=== PATIENT | female | born 1955 | race Caucasian/White ===

== ENCOUNTER 2018-09-20 14:54 | Emergency (ER) | payer OTHER ==
[2018-09-20] MEDS ORDERED: PANTOPRAZOLE 40 MG INJ ONE (16:01)
[2018-09-20 16:07] LABS: Absolute Monocytes 0.5 K/uL (0.1-1.3); Absolute Neutrophil 8.4 K/uL (1.8-8.0); Basophils % 0.6 % (0-1.3); Eosinophils % 2.8 % (0-4.4); Lymphocytes % 17.8 % (15.3-44.8); MCH 28.1 pg (27.0-35.0); MCV 86.3 fL (80-100); MPV 8.9 fL (7.6-11.3); Monocytes % 4.1 % (3.3-12.3); RBC Red Blood Cell Count 4.75 M/uL (3.86-4.86)
[2018-09-20 16:19] LABS: Urine Blood NEGATIVE (NEG); Urine Glucose NEGATIVE (NEG); Urine Protein NEGATIVE (NEG); Urine Specific Gravity <1.005 (1.005-1.030); Urine pH 5.5 (5.0-7.0)
[2018-09-20 16:25] LABS: ALT/SGPT 40 U/L (12-78); AST/SGOT 35 U/L (15-37); Albumin 3.8 g/dL (3.4-5.0); Alkaline Phosphatase 142 U/L (45-117); BUN Blood Urea Nitrogen 16 mg/dL (7-18); Bicarbonate 27 mmol/L (21-32); Bilirubin Direct < 0.1 mg/dL (0-0.2); Bilirubin Total 0.2 mg/dL (0.2-1.0); Glucose Level 103 mg/dL (74-106); Lipase 157 U/L (73-393); Potassium 3.7 mmol/L (3.5-5.1); Protein, Total 7.4 g/dL (6.4-8.2); Sodium Level 140 mmol/L (136-145)
--- NOTE | 2018-09-20 16:57 | RAD REPORT ---
EXAM DESCRIPTION: CT - Abdomen Pelvis W Contrast - 09/20/2018 4:48 pm CLINICAL HISTORY: Abdominal pain with nausea. COMPARISON: January 2018 TECHNIQUE: Computed axial tomography of the abdomen pelvis was obtained. 100 cc Isovue-300 was admin istered intravenously. Oral contrast was not requested which limits evaluation of bowel. All CT scans are performed using dose optimization technique as appropriate and may include automated exposure control or mA/KV adjustment according to patient size. FINDINGS: Postsurgical changes of a gastric bypass. The wall of the gastric fundus appears thickened . The gallbladder has been removed The liver, spleen, pancreas, adrenal and kidneys appear unremarkable. There is no evidence of diverticulitis. IMPRESSION: Apparent thickening of the wall of the gastric fundus may indicate inflammation
--- NOTE | 2018-09-20 17:16 | ER ---
Nurse's Notes [facility] Name: Brit Vale Age: 63 yrs Sex: Female : 1955 Arrival Date: 09/20/2018 Time: 14:58 Bed 25 Private MD: Nuha Avila K Diagnosis: Gastritis, unspecified Presentation: 09/20 15:33 Presenting complaint: Patient states: Upper abdominal pain that radiates up to her aj1 chest for the past 2 days. Reports belching, nausea. Denies vomiting, diarrhea. Denies fever. Transition of care: patient was not received from another setting of care. Onset of symptoms was September 18, 2018. Risk Assessment: Do you want to hurt yourself or someone else? Patient reports no desire to harm self or others. Initial Sepsis Screen: Does the patient meet any 2 criteria? No. Patient's initial sepsis screen is negative. Does the patient have a suspected source of infection? Yes: Acute abdominal pain. Care prior to arrival: None. 15:33 Method Of Arrival: Ambulatory aj 15:33 Acuity: BHAKTI 3 aj1 Triage Assessment: 15:35 General: Appears in no apparent distress. comfortable, Behavior is calm, cooperative, aj1 appropriate for age. Pain: Complains of pain in right upper quadrant and left upper quadrant Pain currently is 6 out of 10 on a pain scale. Neuro: Level of Consciousness is awake, alert, obeys commands. Cardiovascular: Patient's skin is warm and dry. Respiratory: Airway is patent Respiratory effort is even, unlabored, Respiratory pattern is regular, symmetrical. GI: Reports upper abdominal pain, gaseousness, nausea. Historical: - Allergies: 15:35 FLU VACCINE; aj1 - Home Meds: 15:35 None [Active]; aj1 - PMHx: 15:35 Sinus Infections; aj1 - PSHx: 15:35 Gastric Bypass; Cholecystectomy; neck surgery; arm surgery; aj1 - Immunization history:: Flu vaccine is not up to date. - Social history:: Smoking status: Patient/guardian denies using tobacco. - Ebola Screening: : Patient denies travel to an Ebola-affected area in the 21 days before illness onset. Screenin:39 Abuse screen: Denies threats or abuse. Nutritional screening: No deficits noted. tw2 Tuberculosis screening: No symptoms or risk factors identified. Fall Risk None identified. Assessment: 15:54 General: Appears in no apparent distress. well groomed, Behavior is calm, cooperative, tw2 appropriate for age. Pain: Complains of pain in epigastric area and left upper quadrant and right upper quadrant. Neuro: Level of Consciousness is awake, alert, obeys commands, Oriented to person, place, time, situation. Cardiovascular: Denies chest pain, shortness of breath, Heart tones S1 S2 Patient's skin is warm and dry. Respiratory: Airway is patent Respiratory effort is even, unlabored, Respiratory pattern is regular, symmetrical, Breath sounds are clear bilaterally. GI: Bowel sounds present X 4 quads. Abd is soft X 4 quads Reports upper abdominal pain, indigestion. : No signs and/or symptoms were reported regarding the genitourinary system. EENT: No signs and/or symptoms were reported regarding the EENT system. Derm: No signs and/or symptoms reported regarding the dermatologic system. Musculoskeletal: Range of motion: intact in all extremities. 16:26 Reassessment: Patient appears in no apparent distress at this time. No changes from tw2 previously documented assessment. Patient and/or family updated on plan of care and expected duration. Pain level reassessed. Patient is alert, oriented x 3, equal unlabored respirations, skin warm/dry/pink. 17:30 Reassessment: Patient appears in no apparent distress at this time. Patient and/or kr2 family updated on plan of care and expected duration. Pain level reassessed. Patient is alert, oriented x 3, equal unlabored respirations, skin warm/dry/pink. Vital Signs: 15:35 BP 162 / 75; Pulse 69; Resp 18; Temp 97.7; Pulse Ox 99% on R/A; Weight 83.01 kg (R); aj1 Height 5 ft. 8 in. (172.72 cm); Pain 6/10; 16:26 BP 153 / 68; Pulse 54; Resp 17; Pulse Ox 100% on R/A; tw2 17:30 BP 154 / 64; Pulse 60; Resp 17; Pulse Ox 99% on R/A; kr2 15:35 Body Mass Index 27.82 (83.01 kg, 172.72 cm) aj1 ED Course: 14:58 Patient arrived in ED. sb2 14:58 Nuha Avila MD is Private Physician. sb2 15:34 Triage completed. aj1 15:35 Arm band placed on Patient placed in an exam room. aj1 15:38 Taina Martinez, RN is Primary Nurse. tw2 15:39 Bed in low position. Call light in reach. Adult w/ patient. Pulse ox on. NIBP on. tw2 15:40 Janey Watt FNP-C is [facility]. kb 15:40 Damaso Gunderson MD is Attending Physician. kb 15:40 Warm blanket given. Pillow given. jp3 15:50 Initial lab(s) drawn, by ms, sent to lab. Urine collected: clean catch specimen, clear, jp3 Amount Voided: 80mL. Inserted saline lock: 22 gauge in left antecubital area, using aseptic technique. Blood collected. Patient maintains SpO2 saturation greater than 95% on room air. 16:44 EKG done, by agricultural engineering technologist. reviewed by Janey BUSTILLO. dt2 16:[address] via wheelchair. mw3 16:46 CT completed. Patient tolerated procedure well. Patient moved back from CT. mw3 16:48 CT Abd/Pelvis - W/Contrast In Process Unspecified. EDMS 16:58 Report given to SILVIA Sanchez. tw2 17:28 IV discontinued, intact, bleeding controlled, No redness/swelling at site. Pressure jp3 dressing applied. 17:31 No provider procedures requiring assistance completed. kr2 17:32 IV dc'd at 1728 by HONG Ricks. kr2 Administered Medications: 16:10 Drug: ProTONIX 40 mg Route: IVP; Site: left antecubital; tw2 17:32 Follow up: Response: No adverse reaction kr2 Outcome: 17:15 Discharge ordered by . kb 17:31 Discharged to home ambulatory, with family. kr2 17:31 Condition: good 17:31 Discharge instructions given to patient, family, Instructed on discharge instructions, follow up and referral plans. medication usage, Demonstrated understanding of instructions, follow-up care, medications, Prescriptions given X 1. 17:33 Patient left the ED. kr2 Signatures: Dispatcher [employer] EDMS Janey Watt, Sarah Tobias RN RN aj1 Taina Martinez, RN RN tw2 Laura Funes RN RN kr2 Baylee Snow2 Rebecca Hernandes dt2 Leatha Chicas mw3 Seun Harper jp3
--- NOTE | 2018-09-20 17:16 | EDPHYS ---
Physician Documentation [facility] Name: Brit Vale Age: 63 yrs Sex: Female : 1955 Arrival Date: 09/20/2018 Time: 14:58 Bed 25 Private MD: Nuha Avila K ED Physician Damaso Gunderson HPI: 09/20 17:01 This 63 yrs old Female presents to ER via Ambulatory with complaints of kb Abdominal Pain. 17:01 The patient presents with abdominal pain in the upper abdomen. Onset: The kb symptoms/episode began/occurred 2 day(s) ago. The symptoms do not radiate. Associated signs and symptoms: Pertinent positives: nausea, belching. The symptoms are described as constant. Modifying factors: The symptoms are alleviated by nothing, the symptoms are aggravated by nothing. Severity of pain: At its worst the pain was moderate in the emergency department the pain is unchanged. The patient has not experienced similar symptoms in the past. The patient has not recently seen a physician. Historical: - Allergies: 15:35 FLU VACCINE; aj1 - Home Meds: 15:35 None [Active]; aj1 - PMHx: 15:35 Sinus Infections; aj1 - PSHx: 15:35 Gastric Bypass; Cholecystectomy; neck surgery; arm surgery; aj1 - Immunization history:: Flu vaccine is not up to date. - Social history:: Smoking status: Patient/guardian denies using tobacco. - Ebola Screening: : Patient denies travel to an Ebola-affected area in the 21 days before illness onset. ROS: 16:59 Constitutional: Negative for fever, chills, and weight loss, Cardiovascular: Negative kb for chest pain, palpitations, and edema, Respiratory: Negative for shortness of breath, cough, wheezing, and pleuritic chest pain, Back: Negative for injury and pain, MS/Extremity: Negative for injury and deformity, Skin: Negative for injury, rash, and discoloration, Neuro: Negative for headache, weakness, numbness, tingling, and seizure. 16:59 Abdomen/GI: Positive for abdominal pain, nausea, belching. kb Exam: 16:59 Constitutional: This is a well developed, well nourished patient who is awake, alert, kb and in no acute distress. Head/Face: Normocephalic, atraumatic. Chest/axilla: Normal chest wall appearance and motion. Nontender with no deformity. No lesions are appreciated. Cardiovascular: Regular rate and rhythm with a normal S1 and S2. No gallops, murmurs, or rubs. Normal PMI, no JVD. No pulse deficits. Respiratory: Lungs have equal breath sounds bilaterally, clear to auscultation and percussion. No rales, rhonchi or wheezes noted. No increased work of breathing, no retractions or nasal flaring. Back: No spinal tenderness. No costovertebral tenderness. Full range of motion. Skin: Warm, dry with normal turgor. Normal color with no rashes, no lesions, and no evidence of cellulitis. MS/ Extremity: Pulses equal, no cyanosis. Neurovascular intact. Full, normal range of motion. Neuro: Awake and alert, GCS 15, oriented to person, place, time, and situation. Cranial nerves II-XII grossly intact. Motor strength 5/5 in all extremities. Sensory grossly intact. Cerebellar exam normal. Normal gait. 16:59 Abdomen/GI: Inspection: abdomen appears normal, Bowel sounds: normal, in all quadrants, Palpation: soft, in all quadrants, moderate abdominal tenderness, in the right upper quadrant and left upper quadrant. Vital Signs: 15:35 BP 162 / 75; Pulse 69; Resp 18; Temp 97.7; Pulse Ox 99% on R/A; Weight 83.01 kg (R); aj1 Height 5 ft. 8 in. (172.72 cm); Pain 6/10; 16:26 BP 153 / 68; Pulse 54; Resp 17; Pulse Ox 100% on R/A; tw2 17:30 BP 154 / 64; Pulse 60; Resp 17; Pulse Ox 99% on R/A; kr2 15:35 Body Mass Index 27.82 (83.01 kg, 172.72 cm) aj1 MDM: 15:40 Patient medically screened. kb 16:59 Data reviewed: vital signs, nurses notes. Data interpreted: Pulse oximetry: on room air kb is 100 %. Interpretation: normal. Counseling: I had a detailed discussion with the patient and/or guardian regarding: the historical points, exam findings, and any diagnostic results supporting the discharge/admit diagnosis, lab results, radiology results, the need for outpatient follow up, a family practitioner, to return to the emergency department if symptoms worsen or persist or if there are any questions or concerns that arise at home. 09/20 15:40 Order name: Basic Metabolic Panel; Complete Time: 16:28 kb 09/20 15:40 Order name: CBC with Diff; Complete Time: 16:15 kb 09/20 15:40 Order name: Hepatic Function; Complete Time: 16:28 kb 09/20 15:40 Order name: Lipase; Complete Time: 16:28 kb 09/20 16:07 Order name: Urine Dipstick--Ancillary (enter results); Complete Time: 16:20 bd 09/20 16:30 Order name: CT Abd/Pelvis - W/Contrast; Complete Time: 16:58 kb 09/20 15:40 Order name: IV Saline Lock; Complete Time: 16:14 kb 09/20 15:40 Order name: Labs collected and sent; Complete Time: 16:14 kb 09/20 16:11 Order name: EKG; Complete Time: 16:12 kb 09/20 16:11 Order name: EKG - Nurse/Tech; Complete Time: 16:36 kb Administered Medications: 16:10 Drug: ProTONIX 40 mg Route: IVP; Site: left antecubital; tw2 17:32 Follow up: Response: No adverse reaction kr2 Disposition: 18:44 Co-signature as Attending Physician, Damaso Gunderson MD. rn Disposition: 09/20/18 17:15 Discharged to Home. Impression: Gastritis, unspecified. - Condition is Stable. - Discharge Instructions: Gastritis, Adult, [id number]. - Prescriptions for Protonix 40 mg Oral Tablet - take 1 tablet by ORAL route once daily; 30 tablet. - Medication Reconciliation Form, Thank You Letter, Antibiotic Education, Prescription Opioid Use form. - Follow up: Emergency Department; When: As needed; Reason: Worsening of condition. Follow up: Private Physician; When: 2 - 3 days; Reason: Recheck today's complaints, Continuance of care, Re-evaluation by your physician. Signatures: Dispatcher [employer] Janey Torres, CLYDE-C BLEACH TESTER-CkSarah Peguero, RN RN aj1 Daamso Gunderson MD MD rn Wise, Tara, RN RN tw2 Laura Funes RN RN kr2 Corrections: (The following items were deleted from the chart) 17:33 17:15 09/20/2018 17:15 Discharged to Home. Impression: Gastritis, unspecified. kr2 Condition is Stable. Forms are Medication Reconciliation Form, Thank You Letter, Antibiotic Education, Prescription Opioid Use. Follow up: Emergency Department; When: As needed; Reason: Worsening of condition. Follow up: Private Physician; When: 2 - 3 days; Reason: Recheck today's complaints, Continuance of care, Re-evaluation by your physician. kb
--- NOTE | 2018-09-20 22:16 | EKG ---
Test Date: 2018-09-20 Test Time: 16:29:12 Automotive Machinist: OSMANI MEASUREMENT RESULTS: Intervals: Rate: 53 VT: 156 QRSD: 74 QT: 442 QTc: 414 [place]: P: 8 VT: 156 QRS: 18 T: 46 INTERPRETIVE STATEMENTS: Sinus bradycardia Otherwise normal ECG Compared to ECG 09/13/2018 13:58:58 Sinus rhythm no longer present Electronically Signed On 09-20-18 22:15:49 DIGITAL DATA ANALYST by Gerson Marinelli
== END 2018-09-20 17:33 | disposition home or self-care (01) ==
LOC: ER 14:54
DX: K29.70 Gastritis, unspecified, without bleeding (principal); Z88.7 Allergy status to serum and vaccine
CPT/HCPCS: 36415; 74177; 80048; 80076; 81003; 83690; 85025; 93005; 96374; 99285; C9113; Q9967

== ENCOUNTER 2018-09-22 07:59 | Day surgery (SDC) | payer OTHER ==
--- NOTE | 2018-09-13 15:14 | EKG ---
Test Date: 2018-09-13 Test Time: 13:58:58 Angle Bender: CORIN MEASUREMENT RESULTS: Intervals: Rate: 62 PA: 148 QRSD: 72 QT: 390 QTc: 395 [place]: P: 5 PA: 148 QRS: 22 T: 50 INTERPRETIVE STATEMENTS: Normal sinus rhythm Normal ECG Compared to ECG 02/26/2013 10:48:01 Sinus bradycardia no longer present Sinus arrhythmia no longer present Electronically Signed On 09-13-18 15:14:08 CDT by Gerson Marinelli
[2018-09-22] MEDS: OXYMETAZOLINE HCL 0.05% 15ML NAS ONE ×3 (08:07→08:30)
[2018-09-22] MEDS ORDERED: Ringers Lactate 1,000 ML IV ONE ×2 (08:13→11:15)
[2018-09-22] MEDS ORDERED: NA CHLORIDE 0.9% 500 ML ONE (08:27)
[2018-09-22] MEDS ORDERED: OXYMETAZOLINE HCL 0.05% 15ML NAS ONE (08:27)
[2018-09-22] MEDS ORDERED: ROCURONIUM 50 MG/5 ML VIAL IV ONE ×2 (08:45→10:09)
[2018-09-22] MEDS ORDERED: PROPOFOL 200 MG/20 ML VIAL IV ONE (08:45)
[2018-09-22] MEDS ORDERED: LIDOCAINE 2% MPF 5 ML VIAL ONE (08:46)
[2018-09-22] MEDS ORDERED: GLYCOPYRROLATE 0.2 MG/ML SYR ONE ×3 (08:46→09:58)
[2018-09-22] MEDS ORDERED: FENTANYL CITR 250 MCG/5 ML ONE (08:47)
[2018-09-22] MEDS ORDERED: MIDAZOLAM HCL 2 MG/2 ML INJ ONE (08:47)
[2018-09-22] MEDS ORDERED: ONDANSETRON HCL 40 MG/20 ML VIAL ONE (08:48)
[2018-09-22] MEDS ORDERED: NEOSTIGMINE 1 MG/ML -5 ML SYRINGE ONE (08:48)
[2018-09-22] MEDS: LIDOCAINE 1% W/EPI 1:100,000 MDV 50 ML VIAL ONE ×2 (09:09→09:52)
[2018-09-22] MEDS ORDERED: DEXAMETHASONE 10 MG/ML VIAL ONE (10:38)
[2018-09-22] MEDS: MEPERIDINE HCL 50 MG/ML AMP ONE ×3 (11:40→11:45)
--- NOTE | 2018-09-23 00:48 | OP ---
Date of Procedure: 09/22/2018 Surgeon: Apurva Kim MD Preoperative Diagnoses: Nasal deviation and nasal obstruction. Septal deviation, chronic maxillary ethmoid and frontal sinusitis, oroantral fistula. Indication For Procedure: Ms. Vale presented after a dental extraction with an oroantral fistula w ith drainage of chronic sinusitis. She was treated with multiple courses of antibiotics without sign ificant improvement and finally opted for operative intervention. The risks, benefits, and alternati ves to the procedure were discussed with the patient, who agreed to proceed. Description Of Procedure: The patient was brought to the operating room. She was placed under gener al anesthesia. The head of bed was turned 90 degrees. The nasal hairs were trimmed and the septum w as injected with 1% lidocaine with epinephrine and the nasal cavity was packed with Afrin-soaked pled gets. After time for effect, a nasal speculum was used to visualize the nasal cavity. The septum wa s deviated significantly to the left with significant narrowing of the nasal cavity. A right hemitra nsfixion incision was made through the mucosa and bilateral submucosal flaps were elevated using a Co ttle elevator. The Grimes elevator was then used to incise into the cartilage, leaving an adequate c audocranial strut. The bony deviation was removed using a Valerio rongeur. A prominent septal spur w as carefully removed. This allowed for significant improvement in the positioning of the nasal septu m. No closure of the septum was made at this time, and attention was turned to the endoscopic portio n of the procedure. The [employer] headpiece was attached to the patient's forehead and registration w ith the preoperative CT scan was performed using a laser pointer with excellent accuracy and point-to -point matching of the tip of the nose, dorsum of bilateral medial and lateral canthi. The 0-degree endoscope was used to perform a nasal endoscopy on the left side. The middle turbinate was medialize d with a [place] and the middle meatus was packed with an Afrin-soaked pledget. After several minutes, this was removed and a maxillary antrostomy was performed by removal of the uncinate process using a backbiter and 90-degree Blakesley. During manipulation of the uncinate process, the sinus was noted to have significant purulent material draining from it. A maxillary sinus antrostomy was enlarged u sing the microdebrider as well as the 90-degree Blakesley and was best visualized using a 30-degree e ndoscope. After adequate dissection, photodocumentation of the maxillary sinus was taken and it show ed severe inflammation of the lining of the sinus as well as significant purulent debris. The sinus was forcefully irrigated with multiple aliquots of sterile saline until all visible purulence was rem noam. The antrostomy area was packed with Afrin-soaked pledgets to aid in hemostasis and attention w as then turned to the ethmoid. The 30-degree endoscope along with the navigation suction tip was use d during. Dissection of the ethmoid, the bulla was carefully dissected using a curette and bony part itions within the anterior ethmoid cavity were removed using a straight 45 and 90-degree Blakesley. There was moderate purulence within the ethmoid cavity as well as a severely inflamed ethmoid mucosal inflammation and edema. Once the anterior ethmoids were opened inferiorly, the 30-degree endoscope was used to provide better visualization along the skull base and additional partitions were removed. The 70-degree endoscope was then used for visualization of the frontal recess. The frontal recess was further opened using a bcqdb-eo-bnqf and yrpu-wy-cgwn Giraffe with removal of partition and remov al of severely inflamed mucosa. The frontal sinusotomy was then cannulated using a curved navigation suction and the frontal sinus was forcefully irrigated with 2 aliquots of sterile saline. Afrin-soa ked pledgets were packed into the sinus cavity for several minutes to aid in hemostasis. After remov al, the degree of inflammation warranted placement of steroid-eluting stents. The PROPEL Mini was pl aced within the frontal recess under endoscopic guidance. The standard PROPEL was then placed within the ethmoid sinuses with good positioning. The nasal cavity and nasopharynx were suctioned bilatera lly and attention was returned to the septum. Using a headlight and short nasal speculum, the hemitr ansfixion incision was closed in a running fashion using 5-0 plain suture and the patient was returne d to care of anesthesia for awakening and extubation in the operating room, which proceeded without d ifficulty. Procedures: 1.Septoplasty. 2.Nasal endoscopy with frontal sinusotomy. 3.Nasal endoscopy with anterior left ethmoidectomy. 4.Nasal endoscopy with left maxillary antrostomy. JEFF/CYNDEE Voice ID: [id number] Report ID: [id number]
== END 2018-09-22 13:09 | disposition home or self-care (01) ==
LOC: OR 07:59
PROVIDERS: ATTEND Otolaryngology
PROC: 09BV8ZZ Excision of Left Ethmoid Sinus, Via Natural or Artificial Opening Endoscopic (ICD-10-PCS; 2018-09-22)
PROC: 099T8ZZ Drainage of Left Frontal Sinus, Via Natural or Artificial Opening Endoscopic (ICD-10-PCS; 2018-09-22)
PROC: 099R8ZZ Drainage of Left Maxillary Sinus, Via Natural or Artificial Opening Endoscopic (ICD-10-PCS; 2018-09-22)
PROC: 8E09XBG Computer Assisted Procedure of Head and Neck Region, With Computerized Tomography (ICD-10-PCS; 2018-09-22)
PROC: 09SM4ZZ Reposition Nasal Septum, Percutaneous Endoscopic Approach (ICD-10-PCS; 2018-09-22)
PROC: 8E09XBZ Computer Assisted Procedure of Head and Neck Region (ICD-10-PCS; principal; 2018-09-22 09:15)
DX: J32.2 Chronic ethmoidal sinusitis (principal); J32.0 Chronic maxillary sinusitis; J32.1 Chronic frontal sinusitis; J34.2 Deviated nasal septum; K21.9 Gastro-esophageal reflux disease without esophagitis; Z98.84 Bariatric surgery status; Z90.49 Acquired absence of other specified parts of digestive tract; Z83.3 Family history of diabetes mellitus; Z82.49 Family history of ischemic heart disease and other diseases of the circulatory system
CPT/HCPCS: 88304; 88305; 88311; 93005; J1100; J2175; J2250; J2405; J2704; J2710; J3010

== ENCOUNTER 2021-09-18 06:25 | Day surgery (SDC) | payer OTHER ==
[2021-09-18] MEDS ORDERED: Ringers Lactate 1,000 ML IV ONE (06:50)
[2021-09-18] MEDS ORDERED: OXYMETAZOLINE HCL 0.05% 15ML NAS ONE (06:51)
[2021-09-18] MEDS ORDERED: LIDOCAINE 1% W/EPI 1:100,000 MDV 20 ML VIAL ONE (06:51)
[2021-09-18] MEDS ORDERED: EPINEPHRINE/PF 1 MG/ML AMP ONE (06:51)
[2021-09-18] MEDS ORDERED: NA CHLORIDE 0.9% 0 ML ONE (06:51)
[2021-09-18] MEDS ORDERED: MIDAZOLAM HCL 2 MG/2 ML INJ ONE (07:07)
[2021-09-18] MEDS ORDERED: propofoL 200 MG/20 ML VIAL IV ONE (07:07)
[2021-09-18] MEDS ORDERED: GLYCOPYRROLATE 0.2 MG/ML SYR ONE (07:08)
[2021-09-18] MEDS ORDERED: LIDOCAINE 2% MPF 5 ML VIAL ONE (07:09)
[2021-09-18] MEDS ORDERED: ROCURONIUM 50 MG/5 ML VIAL IV ONE (07:10)
[2021-09-18] MEDS ORDERED: ONDANSETRON 4 MG/2 ML VIAL ONE (07:10)
[2021-09-18] MEDS ORDERED: FENTANYL CITR 100 MCG/2 ML ONE (07:11)
[2021-09-18] MEDS ORDERED: dexAMETHasone 10 MG/ML VIAL ONE (07:11)
[2021-09-18] MEDS: OXYMETAZOLINE HCL 0.05% 15ML NAS ONE ×2 (07:18→07:24)
--- NOTE | 2021-09-18 08:03 | P.BOP ---
Preoperative diagnosis: CRS, left maxillary, PND, mucus recirculation Postoperative diagnosis: same Primary procedure: L revision maxillary antrostomy via nasal endoscopy Dockworker: NONE,NONE Estimated blood loss: <5ml Specimen: left maxillary scar band and mucus Findings: left maxillary scar band and mucus recirculation Anesthesia: General Complications: None Implants: none Fluids & blood products: 500ml crystalloid Transferred to: Recovery Room Condition: Good
[2021-09-18] MEDS ORDERED: ACETAMINOPHEN 325 MG TABLET ONE (09:16)
[2021-09-18] MEDS ORDERED: EPHEDRINE SULF 50 MG/ML VIAL ONE (09:17)
[2021-09-18 09:51] VITALS: BP 116/57; TEMP 97.6; O2SAT 97
--- NOTE | 2021-09-18 12:32 | OP ---
Date of Procedure: 09/18/2021 Surgeon: Apurva Kim MD Preoperative Diagnosis: Chronic maxillary sinus mucus recirculation and postnasal drainage. Postoperative Diagnosis: Chronic maxillary sinus mucus recirculation and postnasal drainage. Procedure: Revision left maxillary antrostomy. Indication For Procedure: Ms. Vale previously underwent left-sided sinus surgery for severe odonto genic infection, at which time, she had severe mucosal inflammation. She did very well overall after surgery, but over time developed complaints of postnasal drainage. She was treated conservatively w ith saline irrigations with minimal improvement. On followup endoscopic exam, she was noted to have a scar band across the maxillary antrostomy creating mucus recirculation and resulting in her symptom s. The risks, benefits, and alternatives were discussed with the patient, who agreed to proceed. Description Of Procedure: The patient was brought to the operating room. She was placed under gener al anesthesia via oral endotracheal tube. The head of bed was turned 90 degrees. The nasal hairs we re trimmed with scissors and the patient was traced in a standard fashion for endoscopic sinus surger y. A 70-degree rigid endoscope was used to perform a left nasal endoscopy, demonstrating a scar band and thick mucus within that region. A 90-degree Blakesley and 45-degree Blakesley were used to jennie ve the scar band and mucus. The area was packed with Afrin-soaked pledgets to provide hemostasis and after removal of all packing, the area was reexamined and appeared to be open with no additional red undant tissue. No packing and no splints were deemed necessary at this time. The procedure was conc luded. The patient was returned to care of anesthesia for awakening and extubation in the operating room, which proceeded without difficulty. Complications: None. Specimens: Sinonasal trimmings and mucus. Disposition: The patient will be discharged home later today in the care of her family and follow up with Dr. Kim in approximately 10 days for re-evaluation. The patient is instructed to use salin e irrigations twice daily until her followup and to follow a routine nasal precautions. JEFF/CYNDEE Voice ID: [id number] Report ID: [id number]
== END 2021-09-18 09:40 | disposition home or self-care (01) ==
LOC: OR 06:25
PROVIDERS: ATTEND Otolaryngology
PROC: 099R8ZZ Drainage of Left Maxillary Sinus, Via Natural or Artificial Opening Endoscopic (ICD-10-PCS; principal; 2021-09-18 07:30)
DX: J32.0 Chronic maxillary sinusitis (principal); J32.1 Chronic frontal sinusitis; J32.2 Chronic ethmoidal sinusitis; R09.82 Postnasal drip; Z20.822 Contact with and (suspected) exposure to COVID-19
CPT/HCPCS: 93005; 88304; 31256; U0002; J2704; J2250; J3010; J1100; J7120; J2405; 88305; J0171; J7040

== ENCOUNTER 2024-10-15 10:05 | Observation (INO) | payer OTHER ==
--- OUTSIDE RECORDS SUMMARY | 2024-10-15 10:10 | XMS REPORT | Continuity of Care Document ---
Author Name Unknown Address [address] [facility] [address] [place] [address] [facility]entia heal[facility]ct Address [address] [facility] 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 Role Phone Nuha Avila Primary Care Physician + [phone] PEÑA LAM Attending Clinician Unavailab rosanna DALY_LUISANA_Opal_J Attending Clinician Peña Wooten MD Attending Clinician [phone] Doctor Unassigned, [place] Attending Clinician U LUISA Schroeder Attending Clinician Unavailable Only, [facility] Test Attending Clinician Unavailable Pob, [facility] Main Attending Clinician UnavailPEÑA Pierce Admitting Clinician Unavailab rosanna DALY_LUISANA_Opal_Winsome Admitting Clinician Peña Wooten MD Admitting Clinician [phone] Payers Payer Name Policy Type Policy Number Effective Date Expirati on Date Source [employer] [id number] 2015 00:00:00 [employer] (MEDICARE REPLACEMENT PPO) [id number] 2022 00:00:00 [employer] MANAGED MEDICARE PPO-CHACHA [id number] 2022 00:00:00 MEDICARE PART A \T\ B [id number] 2020 00:00:00 Problems Condition Name Condition Details Condition Category Status Onset Date Resolution Date Last Treatment Date Treating Clinician Comments Source Urgent desire to urinate Urgent Desire to Urinate Problem Active 2024-1 1-12 00:00: 00 [facility] Prolapse of female genital organs Prolapse of Female Genital Organs Problem Active 7 00:00: 00 [facility] Cystocele Cystocele Problem Active 05-30 00:00: 00 [facility] Incomplete emptying of urinary bladder Incomplete Emptying of Urinary Bladder Problem Active 05-30 00:00: 00 [facility] Vitamin B12 deficiency (non anemic) Vitamin B12 Deficiency (Non Anemic) Problem Active 06-08 00:00: 00 [facility] Vitamin D deficiency Vitamin D Deficiency Problem Active 06-08 00:00: 00 [facility] Iron deficiency anemia Iron Deficiency Anemia Problem Active 06-08 00:00: 00 [facility] Screening for malignant neoplasm of colon Screening for Malignant Neoplasm of Colon Problem Active 04-17 00:00: 00 [facility] Inconclusi ve mammograph y finding Inconclusi ve Mammograph y Finding Problem Active 6 00:00: 00 [facility] Abnormal findings on diagnostic imaging of breast Abnormal Findings on Diagnostic Imaging of Breast Problem Active 606 00:00: 00 [facility] 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 Problem Active 408 00:00: 00 [facility] Disorder of bone Disorder of Bone Problem Active 408 00:00: 00 [facility] Midline cystocele Midline Cystocele Problem Active 01-10 00:00: 00 [facility] Uterovagin al prolapse Uterovagin al Prolapse Problem Active 01-10 00:00: 00 [facility] Atrophic vaginitis Atrophic Vaginitis Problem Active 01-10 00:00: 00 [facility] Gynecologi kenna examinatio n abnormal Gynecologi kenna Examinatio n Abnormal Problem Active 01-10 00:00: 00 [facility] Arm pain, right Arm pain, right Disease Active 06-30 00:00: 00 [facility] Gynecologi c examinatio n Gynecologi c Examinatio n Problem Active 01-06 00:00: 00 [facility] Allergies, Adverse Reactions, Alerts Allergy Name Allergy Type Status Severity Reaction(s) Onset Date Inactive Date Treating Clinician Comments Source Codeine Propensi ty to adverse reaction s Active Nausea and/or Vomiting 06-30 00:00: 00 [facility] CODEINE DRUG INGREDI Active N/V 06-30 00:00: 00 [facility] NO KNOWN ALLERGIE S Drug Class Active [facility] Social History Social Habit Start Date Stop Date Quantity Comments Source Exposure to SARS-CoV-2 (event) Not sure [facility] function 2023-09-21 00:00:00 2023-09-21 00:00:00 [facility] Alcohol intake 2023-09-14 00:00:00 2023-09-14 00:00:00 0 /d [facility] Tobacco use and exposure 2020-04-28 00:00:00 2020-04-28 00:00:00 Smokeless tobacco non-user [facility] Sex Ass[birth year] At 1955 00:00:00 1955 00:00:00 [facility] Smoking Status Start Date Stop Date Source Never Smoker [facility] Medications Ordered Medication Name Filled Medication Name Start Date Stop Date Current Medication? Ordering Clinician Indication Dosage Frequency Signature (SIG) Comments Components Source ketorolac 30 mg/mL (1 mL) injection solution Inject 1 mL every 6 hours by intramuscul ar route. ketorolac 30 mg/mL (1 mL) injection solution Inject 1 mL every 6 hours by intramuscul ar route. 2023-11 10:10: 03 No 1mL Q6H ketorolac 30 mg/mL (1 mL) injection solution Inject 1 mL every 6 hours by intramuscu lar route. [facility] Medical lactated ringers IV infusion 1,000 mL 2022-11 17:30: 00 Yes 1000mL at 50 mL/hr, 1,000 mL, IV Infusion, CONTINUOUS , Starting on Tue09/21/23 at 1130, Until Discontinu ed, Routine, PACU [facility] ondansetron (ZOFRAN (PF)) injection 4 mg 2022-11 17:20: 29 Yes 4mg 4 mg, Slow IV Push, PRN, 1 dose, Starting on Tue09/21/23 at 1120, Until Discontinu ed, Routine, Nausea and Vomiting (N/V), PACU [facility] sodium chloride (NS) injection 2022-11 17:06: 00 09-21 17:12 :30 No PRN, Starting on Tue09/21/23 at 1106, Until Tue09/21/23 at 1112, Routine, Intra-op [facility] neomycin-po lymyxin-dex amethasone (MAXITROL) 3.5 mg/g-10,000 unit/g-0.1 % ophthalmic ointment 2022-11 17:06: 00 09-21 17:12 :30 No PRN, Starting on Tue09/21/23 at 1106, Until Tue09/21/23 at 1112, Routine, Intra-op [facility] dexamethaso ne (DECADRON PHOSPHATE) injection 2022-11 17:06: 00 09-21 17:12 :30 No PRN, Starting on Tue09/21/23 at 1106, Until Tue09/21/23 at 1112, Routine, Intra-op [facility] ceFAZolin (ANCEF) injection 2022-11 17:06: 00 09-21 17:12 :30 No PRN, Starting on Tue09/21/23 at 1106, Until Tue09/21/23 at 1112, MINDA, Intra-op [facility] carbachoL (MIOSTAT) 0.01 % intraocular injection 2022-11 17:05: 00 09-21 17:12 :30 No PRN, Starting on Tue09/21/23 at 1105, Until Tue09/21/23 at 1112, Routine, Intra-op [facility] chondroitin sulf-sod hyaluronate (DUOVISC VISCO ELASTIC) intraocular injection 2022-11 16:55: 00 09-21 17:12 :30 No PRN, Starting on Tue09/21/23 at 1055, Until Tue09/21/23 at 1112, Routine, Intra-op [facility] EPINEPHrine 1:1,000 (1 mg/mL) (ADRENALIN) injection 2022-11 16:54: 00 09-21 17:12 :30 No PRN, Starting on Tue09/21/23 at 1054, Until Tue09/21/23 at 1112, Routine, Intra-op [facility] water for irrigation irrigation solution 2022-11 16:47: 00 09-21 17:12 :30 No PRN, Starting on Tue09/21/23 at 1047, Until Tue09/21/23 at 1112, Routine, Intra-op [facility] balanced salt irrig soln comb1 (BSS PLUS) ophthalmic solution 500 mL bag 2022-11 16:45: 00 09-21 17:12 :30 No PRN, Starting on Tue09/21/23 at 1045, Until Tue09/21/23 at 1112, Routine, Intra-op [facility] Hyaluronida se, Human Recomb. (HYLENEX) injection 2022-11 16:44: 00 09-21 17:12 :30 No PRN, Starting on Tue09/21/23 at 1044, Until Tue09/21/23 at 1112, Routine, Intra-op [facility] eye block syringe 11 mL 2022-11 16:43: 00 09-21 17:12 :30 No PRN, Starting on Tue09/21/23 at 1043, Until Tue09/21/23 at 1112, Intra-op [facility] cyclopent 1%-tropic 1%-phenyl 2.5%-ketor 0.5% (MYDRIATIC #5) ophthalmic solution syringe 0.5 mL 2022-11 15:30: 00 09-21 15:39 :00 No .5mL 0.5 mL, Left Eye, ONCE, 1 dose, On Tue09/21/23 at 0930, Routine, [facility] lactated ringers IV infusion 1,000 mL 2022-11 15:30: 00 09-21 15:39 :00 No 1000mL at 42 mL/hr, 1,000 mL, IV Infusion, ONCE, 1 dose, On Tue09/21/23 at 0930, Routine, DSU Pre-op [facility] SERTraline 50 mg tablet 2022-11 13:14: 52 Yes 50mg Take 1 tablet by mouth in the morning. [facility] Multivitami ns with Fluoride (MULTI-ASIM MIN ORAL) 2022-11 13:14: 52 Yes Take by mouth. [facility] semaglutide , weight loss, (WEGOVY) 0.5 mg/0.5 mL PnIj SC injection 2022-11 13:14: 52 Yes .5mg inject 0.5 mg under the skin weekly. [facility] buPROPion SR 150 mg SR tablet 2022-11 13:14: 52 Yes 150mg Take 1 tablet by mouth in the morning. [facility] SERTraline 50 mg tablet 04-30 21:09: 18 Yes 50mg Take 50 mg by mouth daily. [facility] Multivitami ns with Fluoride (MULTI-ASIM MIN ORAL) 04-30 21:09: 18 Yes Take by mouth. [facility] cyanocobala min, vitamin B-12, (B-12 DOTS ORAL) 04-30 21:09: 18 Yes Take by mouth. [facility] calcium carbonate (CALCIUM 600 ORAL) 04-30 21:09: 18 Yes Take by mouth. [facility] sodium chloride (NS) injection 04-30 20:05: 00 Yes PRN, Starting Tue04/30/20 at 1505, Until Discontinu ed, Routine, Intra-op [facility] neomycin-po lymyxin-dex amethasone (MAXITROL) 3.5 mg/g-10,000 unit/g-0.1 % ophthalmic ointment 04-30 20:05: 00 Yes PRN, Starting Tue04/30/20 at 1505, Until Discontinu ed, Routine, Intra-op [facility] gentamicin injection 04-30 19:59: 00 Yes PRN, Starting Tue04/30/20 at 1459, Until Discontinu ed, MINDA, Intra-op [facility] EPINEPHrine 1:1,000 (1 mg/mL) (ADRENALIN) injection 04-30 19:58: 00 Yes PRN, Starting Tue04/30/20 at 1458, Until Discontinu ed, Routine, Intra-op [facility] DUOVISC (DUOVISC VISCO ELASTIC) 3 %-4 %(0.5 mL) 1 % (0.55 mL) intraocular injection 04-30 19:58: 00 Yes PRN, Starting Tue04/30/20 at 1458, Until Discontinu ed, Routine, Intra-op [facility] dexamethaso ne (DECADRON PHOSPHATE) injection 04-30 19:58: 00 Yes PRN, Starting Tue04/30/20 at 1458, Until Discontinu ed, Routine, Intra-op [facility] ceFAZolin (ANCEF) injection 04-30 19:58: 00 Yes PRN, Starting Tue04/30/20 at 1458, Until Discontinu ed, MINDA, Intra-op [facility] carbachoL (MIOSTAT) 0.01 % intraocular injection 04-30 19:57: 00 Yes PRN, Starting Tue04/30/20 at 1457, Until Discontinu ed, Routine, Intra-op [facility] balanced salt irrig soln comb1 (BSS PLUS) ophthalmic solution 500 mL bag 04-30 19:57: 00 Yes PRN, Starting Tue04/30/20 at 1457, Until Discontinu ed, Routine, Intra-op [facility] water for irrigation irrigation solution 04-30 19:45: 00 Yes PRN, Starting Tue04/30/20 at 1445, Until Discontinu ed, Routine, Intra-op [facility] eye block syringe 11 mL 04-30 19:43: 00 Yes PRN, Starting Tue04/30/20 at 1443, Until Discontinu ed, Intra-op [facility] Hyaluronida se, Human Recomb. (HYLENEX) injection 04-30 19:42: 00 Yes PRN, Starting Tue04/30/20 at 1442, Until Discontinu ed, Routine, Intra-op [facility] lactated ringers IV infusion 500 mL 04-30 17:27: 00 04-30 17:27 :00 No 500mL at 20 mL/hr, 500 mL, IV Infusion, ONCE, 1 dose, Tue04/30/20 at 1230, Routine, DSU Pre-op [facility] mydriatic #5 ophthalmic solution 0.5 mL syringe 04-30 17:15: 00 04-30 17:29 :00 No .5mL 0.5 mL, Right Eye, ONCE, 1 dose, Tue04/30/20 at 1215, Routine, DSU Pre-op [facility] SERTraline 50 mg tablet 04-30 16:09: 18 Yes 50mg Take 50 mg by mouth daily. [facility] Multivitami ns with Fluoride (MULTI-ASIM MIN ORAL) 04-30 16:09: 18 Yes Take by mouth. [facility] Multivitami ns with Fluoride (MULTI-ASIM MIN ORAL) 04-28 20:21: 14 Yes Take by mouth. [facility] cyanocobala min, vitamin B-12, (B-12 DOTS ORAL) 04-28 20:21: 14 Yes Take by mouth. [facility] calcium carbonate (CALCIUM 600 ORAL) 04-28 20:21: 14 Yes Take by mouth. [facility] SERTraline 50 mg tablet 04-28 20:21: 13 Yes 50mg Take 50 mg by mouth daily. [facility] pentazocine -naloxone (TALWIN NX) 50-0.5 mg tablet 07-09 00:00: 00 Yes 1{tbl} Take 1 tablet by mouth every 4 (four) hours as needed for Pain or Headache and/or Pain. [facility] acetaminoph en-codeine (TYLENOL #3) 300-30 mg tablet 06-28 00:00: 00 Yes [facility] diazepam 10 mg tablet TAKE 1 TABLET BY MOUTH THE NIGHT BEFORE PROCEDURE AND 1 TAB 1 HOUR PRIOR TO PROCEDURE NEEDED diazepam 10 mg tablet TAKE 1 TABLET BY MOUTH THE NIGHT BEFORE PROCEDURE AND 1 TAB 1 HOUR PRIOR TO PROCEDURE NEEDED No diazepam 10 mg tablet TAKE 1 TABLET BY MOUTH THE NIGHT BEFORE PROCEDURE AND 1 TAB 1 HOUR PRIOR TO PROCEDURE NEEDED [facility] escitalopra m 10 mg tablet TAKE 1 TABLET BY MOUTH EVERY DAY escitalopra m 10 mg tablet TAKE 1 TABLET BY MOUTH EVERY DAY No 1 Q1D escitalopr am 10 mg tablet TAKE 1 TABLET BY MOUTH EVERY DAY [facility] estradiol 0.01% (0.1 mg/gram) vaginal cream INSERT 0.5 G 3 TIMES A WEEK BY VAGINAL ROUTE estradiol 0.01% (0.1 mg/gram) vaginal cream INSERT 0.5 G 3 TIMES A WEEK BY VAGINAL ROUTE No .5g Q56H estradiol 0.01% (0.1 mg/gram) vaginal cream INSERT 0.5 G 3 TIMES A WEEK BY VAGINAL ROUTE [facility] montelukast 10 mg tablet TAKE 1 TABLET BY MOUTH EVERY DAY montelukast 10 mg tablet TAKE 1 TABLET BY MOUTH EVERY DAY No 1 Q1D montelukas t 10 mg tablet TAKE 1 TABLET BY MOUTH EVERY DAY [facility] Mounjaro 2.5 mg/0.5 mL subcutaneou s pen injector Inject by subcutaneou s route. Mounjaro 2.5 mg/0.5 mL subcutaneou s pen injector Inject by subcutaneou s route. No Mounjaro 2.5 mg/0.5 mL subcutaneo us pen injector Inject by subcutaneo us route. [facility] ergocalcife rol (vitamin D2) 1,250 mcg (50,000 unit) capsule TAKE 1 CAPSULE BY MOUTH ONE TIME PER WEEK ergocalcife rol (vitamin D2) 1,250 mcg (50,000 unit) capsule TAKE 1 CAPSULE BY MOUTH ONE TIME PER WEEK No ergocalcif lilibeth (vitamin D2) 1,250 mcg (50,000 unit) capsule TAKE 1 CAPSULE BY MOUTH ONE TIME PER WEEK [facility] ibuprofen 800 mg tablet TAKE 1 TABLET BY MOUTH EVERY 8 HOURS UNTIL INFLAMMATIO N SUBSIDES OR NEEDED FOR PAIN ibuprofen 800 mg tablet TAKE 1 TABLET BY MOUTH EVERY 8 HOURS UNTIL INFLAMMATIO N SUBSIDES OR NEEDED FOR PAIN No ibuprofen 800 mg tablet TAKE 1 TABLET BY MOUTH EVERY 8 HOURS UNTIL INFLAMMATI ON SUBSIDES OR NEEDED FOR PAIN [facility] celecoxib 200 mg capsule Take 1 capsule every day by oral route as directed for 1 day. celecoxib 200 mg capsule Take 1 capsule every day by oral route as directed for 1 day. No celecoxib 200 mg capsule Take 1 capsule every day by oral route as directed for 1 day. [facility] escitalopra m 20 mg tablet TAKE 1 TABLET BY MOUTH EVERY DAY escitalopra m 20 mg tablet TAKE 1 TABLET BY MOUTH EVERY DAY No escitalopr am 20 mg tablet TAKE 1 TABLET BY MOUTH EVERY DAY [facility] levocetiriz ine 5 mg tablet TAKE 1 TABLET BY MOUTH EVERYDAY AT BEDTIME levocetiriz ine 5 mg tablet TAKE 1 TABLET BY MOUTH EVERYDAY AT BEDTIME No levocetiri zine 5 mg tablet TAKE 1 TABLET BY MOUTH EVERYDAY AT BEDTIME [facility] tramadol 50 mg tablet Take 1 tablet every 6 hours by oral route for 2 days. tramadol 50 mg tablet Take 1 tablet every 6 hours by oral route for 2 days. No tramadol 50 mg tablet Take 1 tablet every 6 hours by oral route for 2 days. [facility] Immunizations Ordered Immunization Name Filled Immunization Name Date Status Comments Source SARS-COV-2 COVID-19 PFIZER VACCINE Unknown Completed [facility] SARS-COV-2 COVID-19 PFIZER VACCINE Unknown Completed [facility] SARS-COV-2 COVID-19 PFIZER VACCINE Unknown Completed [facility] SARS-COV-2 COVID-19 PFIZER VACCINE Unknown Completed [facility] Vital Signs Vital Name Observation Time Observation Value Comments S ource BP Diastolic 2024-09-25 00:00:00 58 mm[Hg] [facility] BP Systolic 2024-09-25 00:00:00 95 mm[Hg] [facility] Height 2024-09-25 00:00:00 68 [in_i] [facility] Body Weight 2024-09-25 00:00:00 155.6 [lb_av] [facility] BMI (Body Mass Index) 2024-08-24 00:00[facility] 2024-08-24 00:00:00 68 [in_i] [facility] BP Diastolic 2024-08-24 00:00:00 62 mm[Hg] [facility] Body Weight 2024-08-24 00:00:00 155.6 [lb_av] [facility] BP Systolic 2024-08-24 00:00:00 110 mm[Hg] [facility] Height 2024-06-27 00:00:00 68 [in_i] [facility] BMI (Body Mass Index) 2024-06-27 00:00:00 23.7 kg/m2 [facility] BP Systolic 2024-06-27 00:00:00 110 mm[Hg] [facility] Body Weight 2024-06-27 00:00:00 155.6 [lb_av] [facility] BP Diastolic 2024-06-27 00:00:00 61 mm[Hg] [facility] Height 2024-06-06 00:00:00 68 [in_i] [facility] Body Weight 2024-06-06 00:00:00 161 [lb_av] [facility] BP Systolic 2024-06-06 00:00:00 90 mm[Hg] [facility] BP Diastolic 2024-06-06 00:00:00 64 mm[Hg] [facility] BMI (Body Mass Index) 2024-06-06 00:00:00 24.5 kg/m2 [facility] BP Systolic 2024-05-30 00:00:00 101 mm[Hg] [facility] Body Weight 2024-05-30 00:00:00 162 [lb_av] [facility] BP Diastolic 2024-05-30 00:00:00 61 mm[Hg] [facility] Height 2024-05-30 00:00:00 68 [in_i] [facility] BMI (Body Mass Index) 2024-05-30 00:00:00 24.6 kg/m2 [facility] Systolic blood pressure 2023-09-21 17:30:00 119 mm[Hg] [facility] Diastolic blood pressure 2023-09-21 17:30:00 60 mm[Hg] [facility] Oxygen saturation in Arterial blood by Pulse oximetry 2023-09-21 17:30:00 97 /min [facility] Respiratory rate 2023-09-21 17:25:00 20 /min [facility] Heart rate 2023-09-21 17:10:00 60 /min [facility] Body temperature 2023-09-21 15:39:00 36.33 Becky [facility] Body height 2023-09-14 13:45:00 172.7 cm [facility] Body weight 2023-09-14 13:45:00 76.658 kg [facility] BMI 2023-09-14 13:45:00 25.70 kg/m2 [facility] Systolic blood pressure 2023-09-21 15:39:00 127 mm[Hg] [facility] Diastolic blood pressure 2023-09-21 15:39:00 72 mm[Hg] [facility] Heart rate 2023-09-21 15:39:00 68 /min [facility] Body temperature 2023-09-21 15:39:00 36.33 Becky [facility] Respiratory rate 2023-09-21 15:39:00 14 /min [facility] Oxygen saturation in Arterial blood by Pulse oximetry 2023-09-21 15:39:00 99 /min [facility] Body height 2023-09-14 13:45:00 172.7 cm [facility] Body weight 2023-09-14 13:45:00 76.658 kg [facility] BMI 2023-09-14 13:45:00 25.70 kg/m2 [facility] Systolic blood pressure 2020-04-30 20:28:00 120 mm[Hg] [facility] Diastolic blood pressure 2020-04-30 20:28:00 75 mm[Hg] [facility] Heart rate 2020-04-30 20:28:00 74 /min [facility] Oxygen saturation in Arterial blood by Pulse oximetry 2020-04-30 20:28:00 99 /min [facility] Body temperature 2020-04-30 20:12:00 36.61 Becky [facility] Respiratory rate 2020-04-30 20:12:00 16 /min [facility] Body height 2020-04-28 20:00:00 175.3 cm [facility] Body weight 2020-04-28 20:00:00 82.101 kg [facility] BMI 2020-04-28 20:00:00 26.73 kg/m2 [facility] Systolic blood pressure 2020-04-30 20:28:00 120 mm[Hg] [facility] Diastolic blood pressure 2020-04-30 20:28:00 75 mm[Hg] [facility] Heart rate 2020-04-30 20:28:00 74 /min [facility] Oxygen saturation in Arterial blood by Pulse oximetry 2020-04-30 20:28:00 99 /min [facility] Body temperature 2020-04-30 20:12:00 36.61 Becky [facility] Respiratory rate 2020-04-30 20:12:00 16 /min [facility] Body height 2020-04-28 20:00:00 175.3 cm [facility] Body weight 2020-04-28 20:00:00 82.101 kg [facility] BMI 2020-04-28 20:00:00 26.73 kg/m2 [facility] Procedures Procedure Date / Time Performed Performing Clinician Source US TRANSVAGINAL 2024-06-21 00:00:00 [facility] MAMMO, screening, digital, bilateral 2024-06-06 00:00:00 [facility] PHACOEMULSIFICATION OF CATARACT WITH INTRAOCULAR LENS IMPLANT 2023-09-21 16:34:00 Peña Lam [facility] DAY SURGERY - ADC 2023-09-21 06:01:00 Doctor Unassigned, [place] [facility] CONSENT/REFUSAL FOR DIAGNOSI S AND TREATMENT 2023-09-12 16:34:01 Doctor Unassigned, [place] [facility] DAY SURGERY - ADC 2020-04-30 05:01:00 Doctor Unassigned, [place] [facility] COVID-19 (ID NOW RAPID TESTING) 2020-04-29 14:51:00 Peña Lam [facility] CONSENT/REFUSAL FOR DIAGNOSI S AND TREATMENT 2020-04-23 21:52:42 Doctor Unassigned, [place] [facility] ASSIGNMENT OF BENEFITS 2020-04-23 21:52:28 Doctor Unassigned, [place] [facility] NOTICE OF PRIVACY PRACTICES 2020-04-23 21:52:14 Doctor Unassigned, [place] [facility] CONSENT/REFUSAL FOR DIAGNOSI S AND TREATMENT 2020-04-23 21:52:00 Doctor Unassigned, [place] [facility] ASSIGNMENT OF BENEFITS 2020-04-23 21:51:44 Doctor Unassigned, [place] [facility] PHYSICIAN ORDERS 2020-04-23 05:01:00 Doctor Unassigned, [place] [facility] Cholecystectomy 2012-11-14 00:00:00 [facility] Gastric Bypass for Obesity 2008-11-14 00:00:00 [facility] Procedure on Neck [facility] Ligation of Bilateral Fallopian Tubes [facility] Augmentation of Bilateral Breasts [facility] Encounters Start Date/Time End Date/Time Encounter Type Admission Type Attending Clinicians Care Facility Care Department Encounter ID Source 2021-09-10 23:43:46 Outpatient [facility] ANURADHA [id number] [facility] 2024-09-25 00:00:00 2024-09-25 00:00:00 Carolyn Bacon MD: [address], [place] [address] , Ph. [facility] - GC_GCBZW_Barbara Watt* [id number] [facility] 2024-09-05 00:00:00 2024-09-05 00:00:00 LUZ Leyva: [address], [place] [address] , Ph. [facility] GC_GCBZW_Barbara Watt* [id number] [facility] 2024-08-24 00:00:00 2024-08-24 00:00:00 Carolyn Bacon MD: [address], [place] [address] , Ph. [facility] - GC_GCBZW_Barbara Watt* [id number] [facility] 2024-06-27 00:00:00 2024-06-27 00:00:00 KAREN QuanP: [address], [place] [id number] , Ph. [facility] - GC_GCBZW_Barbara hui Shukri* [id number] [facility] 2024-06-21 00:00:00 2024-06-21 00:00:00 Carolyn Bacon MD: [address], [place] [id number] , Ph. [facility] - GC_GCBZW_Barbara korina Shukri* [id number] [facility] 2024-06-06 00:00:00 2024-06-06 00:00:00 KAREN QuanP: [address], [place] [id number] , Ph. [facility] - GC_GCBZW_Barbara korina Shukri* [id number] [facility] 2024-05-30 00:00:00 2024-05-30 00:00:00 Carolyn Bacon MD: [address], [place] [id number] , Ph. [facility] - GC_GCBZW_Barbara hui Shukri* [id number] [facility] 2023-09-24 00:00:00 2023-09-24 00:00:00 Outpatient GC_INDUHL_M onical_J [facility] [id number] [facility] [facility]23-[facility]-21 09:19:00 2023-09-21 11:40:00 Outpatient PEÑA LEBLANC [facility] OPH [id number] [facility] 2023-09-21 09:19:00 2023-09-21 11:40:00 Hospital Peña Gutierrez [facility] 1.2.840.114 350.1.13.10 4.2.7.2.686 [id number] [facility] 2023-09-21 10:08:00 2023-09-21 10:46:00 Surgery Peña Lam [facility] [place] 1.2.840.114 350.1.13.10 4.2.7.2.686 [id number] [facility] 2023-09-21 00:00:00 2023-09-21 00:00:00 Orders Only Doctor Unassigned, [place] [facility] 1.2.840.114 350.1.13.10 4.2.7.2.686 [id number] [facility] 2023-09-12 00:00:00 2023-09-12 00:00:00 Orders Only Doctor Unassigned, [place] [facility] 1.2.840.114 350.1.13.10 4.2.7.2.686 [id number] [facility] 2023-08-19 00:00:00 2023-08-19 00:00:00 Outpatient GC_S[facility]_M onical_J PRIV PRIV [id number] [facility] 2023-08-19 00:00:00 2023-08-19 00:00:00 Outpatient GC_SWHAHL_M onical_J PRIV PRIV [id number] [facility] 2023-07-22 00:00:00 2023-07-22 00:00:00 Outpatient GC_SWHAHL_M onical_J PRIV PRIV [id number] [facility] 2023-06-24 00:00:00 2023-06-24 00:00:00 Outpatient GC_SWHAHL_M onical_J PRIV PRIV [id number] [facility] 2023-06-23 00:00:00 2023-06-23 00:00:00 Outpatient GC_SWHAHL_M onical_J PRIV PRIV [id number] [facility] 2021-01-08 13:30:00 2021-01-08 13:30:00 Outpatient LUISA MAURER [facility] [id number] [facility] 2020-12-10 13:10:00 2020-12-10 13:10:00 Outpatient LUISA MAURER [facility] [id number] [facility] 2020-04-30 11:54:00 2020-04-30 16:00:00 Hospital Encounter Peña Lam [facility] 1.2.840.114 350.1.13.10 4.2.7.2.686 [id number] [facility] 2020-04-30 11:54:00 2020-04-30 16:00:00 Hospital Encounter Peña Lam [facility] 1.2.840.114 350.1.13.10 4.2.7.2.686 [id number] 2020-04-30 00:00:00 2020-04-30 00:00:00 Orders Only Doctor Unassigned, [place] [facility] 1.2.840.114 350.1.13.10 4.2.7.2.686 [id number] [facility] 2020-04-30 00:00:00 2020-04-30 00:00:00 Orders Only Doctor Unassigned, [place] [facility] 1.2.840.114 350.1.13.10 4.2.7.2.686 [id number] 2020-04-29 15:00:00 2020-04-29 15:00:00 Outpatient PEÑA LEBLANC [facility] [id number] [facility] 2020-04-29 09:28:00 2020-04-29 09:43:00 Laboratory Only Only, Adc Test Peña Lam [facility] 1.2.840.114 350.1.13.10 4.2.7.2.686 [id number] [facility] 2020-04-29 09:28:00 2020-04-29 09:43:00 Laboratory Only Only, Adc Test [facility] 1.2.840.114 350.1.13.10 4.2.7.2.686 [id number] 2020-04-29 09:15:00 2020-04-29 09:15:00 Outpatient R [facility] [id number] [facility] 2020-04-23 16:49:53 2020-04-23 17:04:53 Reject Opener And Filler Visit [facility], Adc Lab Main Peña Lam [facility] 1.2.840.114 350.1.13.10 4.2.7.2.686 [id number] [facility] 2020-04-23 16:49:53 2020-04-23 17:04:53 Reject Opener And Filler Visit [facility] Lab Main [facility] 1.2.840.114 350.1.13.10 4.2.7.2.686 [id number] 2020-04-23 17:00:00 2020-04-23 17:00:00 Outpatient R PEÑA LAM [facility] [id number] [facility] Results Test Description Test Time Test Comments Results Result Co mments Source [facility] Pathology biopsy [id number] 00:00:00Clinical InformationPathologistA SourceA Gross DescriptionA Diagnosis[facility] urinalysis, [id number] 09:24:00* Test Item Value Reference Range Interpretation Comme nts Leukocytes (test code = Leukocytes) 3+ Nitrite (test code = Nitrite) negative Urobilinogen (test code = Urobilinogen) Normal Protein (test code = Protein) 1+ pH (test code = pH) 5.5 Blood (test code = Blood) Negative Specific [place] (test code = Specific [place]) 1.030 Ketone (test code = Ketone) Trace Bilirubin (test code = Bilirubin) 2+ Glucose (test code = Glucose) Negative Appearance (test code = Appearance) Clear Color (test code = Color) Pale Yellow [facility] Medicalmeasurement of post-voiding residual urine and/or bladder capacity (PROC)2024-05-30 10:49:00* Test Item Value Reference Range Interpretation Comme nts (PVR) (test code = (PVR)) 45 ML Migdalia DolanCOVID-19 (ID NOW RAPID TESTING)2020-04-29 15:40:00* Test Item Value Reference Range Interpretation Comme nts SARS-CoV-2 Rapid ID NOW (test code = 68519-4) Not Detected Not Detected KENNEDY (test code = KENNEDY) ID NOW COVID-19 As say is an isothermal nucleic acid amplification test intended for the qualitative detection of nucleic acid from SARS-CoV-2 viral RNA in nasopharyngeal (BPM DEVELOPER) specimens. It is used under Emergency Use Authorization (EUA) by FDA. The limit of detection (LOD) of the assay is 125 Genome Equivalents/mL. A positive result is indicative of the presence of SARS-CoV-2 RNA. ?Clinical correlation with patient history and other diagnostic information is necessary to determine patient infection status. A negative (Not Detected) result does not preclude SARS-CoV-2 infection. In patients with clinical symptoms and other tests that are consistent with SARS-CoV-2 infection, negative results should be treated as presumptive negative and a new specimen should be tested with alternative PCR molecular test. Invalid: Please collect a new specimen for repeat patient testing if clinically indicated. Lab Interpretation (test code = 12468-0) Normal [facility]
[2024-10-15 10:29] VITALS: BMI 21.2
[2024-10-15] MEDS ORDERED: LOPERAMIDE HCL 2 MG CAPSULE PO PRN (10:48)
[2024-10-15] MEDS ORDERED: ONDANSETRON 4 MG/2 ML VIAL IV PRN (10:49)
[2024-10-15] MEDS ORDERED: POLYETHYL GLY 3350 17 GM/DOSE PO PRN (10:50)
[2024-10-15 11:39] LABS: Specific Gravity 1.005 (1.005-1.030); Sqamous Epithelial <5 /HPF (None Seen); Urine Bacteria <20 /HPF (<20); Urine Bilirubin NEGATIVE (Negative); Urine Blood Negative (Negative); Urine Clarity Clear (Clear); Urine Color Colorless (Yellow); Urine Culture Reflex Order NOT NEEDED; Urine Glucose NEGATIVE (Negative); Urine Ketones TRACE (Negative); Urine Microscopic Reflex YN ORDER UMIC; Urine Mucus Slight /HPF (None Seen); Urine Nitrite NEGATIVE (Negative); Urine Protein NEGATIVE (Negative); Urine RBC <5 /HPF (None Seen); Urine Urobilinogen Normal (Normal); Urine WBC <5 /HPF (<5); Urine pH 5.5 (5.0-7.0)
[2024-10-15] MEDS: NACHLORIDE 0.45% 1,000 ML IV SCH (11:44)
[2024-10-15] MEDS: CEFOXITIN 1 GM in NA CHLORIDE 0.9% 50 ML IVPB SCH (11:44)
[2024-10-15 12:28] LABS: Absolute Eosinophils 0.3 K/uL (0-0.5); Absolute Lymphocytes (CBC) 1.9 K/uL (0.7-4.9); Absolute Monocytes 0.3 K/uL (0.1-1.3); Absolute Neutrophil 3.7 K/uL (1.8-8.0); Basophils % 0.8 % (0-1.3); Eosinophils % 5.5 % (0-4.4); Hematocrit 43.7 % (36.0-45.0); Hemoglobin 14.3 g/dL (12.0-15.0); Lymphocytes % 29.7 % (15.3-44.8); MCH 30.1 pg (27.0-35.0); MCHC 32.8 g/dL (32.0-36.0); MCV 91.7 fL (80-100); MPV 9.9 fL (7.6-11.3); Monocytes % 4.2 % (3.3-12.3); Neutrophils % 59.8 % (41.7-73.7); Platelets 218 thou/uL (152-406); RBC Red Blood Cell Count 4.76 M/uL (3.86-4.86)
[2024-10-15 13:04] LABS: ALT/SGPT 33 U/L (13-56); AST/SGOT 35 U/L (15-37); Albumin 3.3 g/dL (3.4-5.0); Albumin/Globulin Ratio 1.2 (1.1-1.8); Alkaline Phosphatase 81 U/L (45-117); BUN Blood Urea Nitrogen 12 mg/dL (7-18); Bicarbonate 28 mEq/L (21-32); Bilirubin Total 0.4 mg/dL (0.2-1.0); Globulin 2.7 g/dL (2.3-3.5); Glomerular Filtration Rate 94 ml/min (=/>90); Glucose Level 86 mg/dL (74-106); Lipase 27 U/L (13-75); Magnesium 2.1 mg/dL (1.6-2.4); Phosphorus 3.8 mg/dL (2.5-4.9); Sodium Level 143 mEq/L (136-145); Thyroid Stimulating Hormone 0.612 uIU/mL (0.358-3.740)
[2024-10-15 13:06] LABS: Bilirubin Direct < 0.2 mg/dL (0-0.2); Bilirubin Indirect, Calculated 0.2 mg/dL (0.2-0.8)
[2024-10-15] MEDS: ACETAMINOPHEN 325 MG TABLET PO PRN (14:24)
--- NOTE | 2024-10-15 14:40 | RAD REPORT ---
EXAMINATION: CT Abdomen Pelvis W Contrast CLINICAL INDICATION: Female, 69 years old. Epigastric pain TECHNIQUE: CT abdomen and pelvis was performed, after the administration of IV contrast, as [facility]. Axial, sagittal and coronal reconstructions were obtained. One or more of the following dose reduction techniques were used: Automated exposure control, adjustment of the mA and k V according to patient size, and iterative reconstruction. Unless otherwise specified, incidental findings do not require dedicated imaging follow-up. COMPARISON: 09/20/2018 FINDINGS: LOWER CHEST: The visualized lung bases are clear. LIVER: Normal in size and contour. No focal lesion. BILIARY SYSTEM: Status post cholecystectomy. SPLEEN: Normal size. No focal lesion. PANCREAS: No mass, ductal dilation, or liliya-pancreatic fluid. ADRENALS: Normal; no mass. KIDNEYS: Normal size and contour. No hydronephrosis. Nonobstructing left superior renal pole 5 mm kenna culus URINARY BLADDER: Decompressed limiting evaluation. GASTROINTESTINAL TRACT: Postsurgical changes of the gastric cardia may relate to prior fundoplication , stable. Nonspecific fluid opacification of nondistended left flank and pelvic small bowel loops, may relate to diarrheal state. No evidence of free air, significant intra-abdominal free fluid, bowel obstruction or abscess. APPENDIX: Appendix not visualized, but no inflammatory changes in region of appendix. LYMPH NODES: No lymphadenopathy. MUSCULOSKELETAL: No acute or suspicious osseous abnormality. ADDITIONAL FINDINGS: None. IMPRESSION: Nonspecific fluid opacification of nondistended small bowel loops as above, may relate to diarrheal s fonseca. Nonobstructing left superior renal pole 5 mm calculus. No other acute or concerning abnormalities seen in the abdomen or pelvis.
[2024-10-15 14:41] LABS: MA/CREAT RATIO ND (< 30.0); UR MICROALBUMIN < 0.5 mg/dL (< 1.9)
--- NOTE | 2024-10-15 17:08 | RAD REPORT ---
EXAMINATION: TWO VIEW CHEST XR CLINICAL INDICATION: Female, 69 years old. [facility] Epigastric pain TECHNIQUE: 2 view radiographs of the chest were performed. COMPARISON: 11/16/2016 FINDINGS: The lungs are well inflated and clear. No pneumothorax or sizable effusion. The heart is normal in si ze. Mediastinal contours are unremarkable. IMPRESSION: No acute or significant abnormalities.
[2024-10-15] MEDS: DIPHENHYDRAMINE 25 MG TAB/CAP PO SCH (20:31)
[2024-10-16] MEDS: HYDROMORPHONE HCL 1 MG/ML INJ IV PRN (01:43)
[2024-10-16 07:48] LABS: Potassium 4.2 mEq/L (3.5-5.1)
[2024-10-16] MEDS: ENOXAPARIN 40 MG/0.4 ML SQ SCH (08:17)
[2024-10-16] MEDS: SERTRALINE HCL 100 MG TAB PO SCH (08:17)
[2024-10-16 08:35] VITALS: BP 122/54; TEMP 98
--- NOTE | 2024-10-16 13:13 | P.DS ---
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 SHE DOES NOT NEED TO LOSE WEIGHT. I TOLD HER I WILL NEVER GIVE DANGEROUS DRUGS TO ANYONE WITHOUT NEED AND FULL EDUCATION ABOUT SIDE EFFECTS. SHE IS ADVISED TO QUIT IT. SHE HAS EARLY SIGNS OF ILEUS ON CT SCAN. THERE IS NO PANCREATITIS. SHE WILL GET BETTER WITH QUITTING [facility]. SHE IS STABLE FOR DISCHARGE. Vital Signs/Physical Exam: Temp Pulse Resp BP Pulse Ox 98.0 F 61 16 122/54 L 95 10/16/24 08:00 10/16/24 08:00 10/16/24 08:00 10/16/24 08:00 10/16/24 08:00 Laboratory Data at Discharge: WBC 6.30 thou/uL (4.3-10.9) 10/15/24 12:10 Hgb 14.3 g/dL (12.0-15.0) 10/15/24 12:10 Hct 43.7 % (36.0-45.0) 10/15/24 12:10 Plt Count 218 thou/uL (152-406) 10/15/24 12:10 APTT 29.8 SECONDS (24.3-36.9) 10/15/24 12:10 Sodium 143 mEq/L (136-145) 10/15/24 12:10 Potassium 4.2 mEq/L (3.5-5.1) 10/16/24 07:17 BUN 12 mg/dL (7-18) 10/15/24 12:10 Creatinine 0.68 mg/dL (0.55-1.02) 10/15/24 12:10 Glucose 86 mg/dL (74-106) 10/15/24 12:10 Phosphorus 3.8 mg/dL (2.5-4.9) 10/15/24 12:10 Magnesium 2.0 mg/dL (1.6-2.4) 10/16/24 07:17 Total Bilirubin 0.4 mg/dL (0.2-1.0) 10/15/24 12:10 AST 35 U/L (15-37) 10/15/24 12:10 ALT 33 U/L (13-56) 10/15/24 12:10 Alkaline Phosphatase 81 U/L (45-117) 10/15/24 12:10 Lipase 27 U/L (13-75) 10/15/24 12:10 Home Medications: Ascorbic Acid [Vitamin C] 500 mg PO DAILY 09/07/21 Aspirin/Caffeine [Bc Powder Packet] 1 each PO PRN PRN 09/07/21 Multivitamin 1 each PO DAILY 09/07/21 Sertraline HCl 100 mg PO DAILY 09/07/21 Vitamin C/Biotin [Bpce-Nkut-Rxltz Gummies] 1 each PO DAILY 09/07/21 Tirzepatide [Mounjaro] 5 mg SQ Q7D 10/15/24 Followup: Maximiliano Jimenez MD [Primary Care Provider] -
== END 2024-10-16 10:09 | disposition home or self-care (01) ==
LOC: 4TH 10:05
PROVIDERS: ADMIT Internal Medicine; ATTEND Internal Medicine
DX: R10.13 Epigastric pain (principal); K85.90 Acute pancreatitis without necrosis or infection, unspecified; E78.5 Hyperlipidemia, unspecified; F41.9 Anxiety disorder, unspecified; Z79.85 Long-term (current) use of injectable non-insulin antidiabetic drugs
CPT/HCPCS: 85025; 81001; 80048; 36415 ×2; 83735 ×2; 84100; 84132; 80076; 85730; 84443; 83036; 82570; 82607; 83690; 82306; 82043; 74177; 71046; Q9967; G0379; J1650; J1171; J0694 ×3; G0378 ×2

== ENCOUNTER 2024-10-30 17:05 | Observation (INO) | payer OTHER ==
--- OUTSIDE RECORDS SUMMARY | 2024-10-30 17:57 | XMS REPORT | Continuity of Care Document ---
Author Name Unknown Address [address] [facility] [address] [place] [address] [facility] thconnect Address [address] 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 Role Phone Nuha Avila Primary Care Physician + [phone] PEÑA LAM Attending Clinician Unavailab rosanna DALY_LUISANA_Opal_J Attending Clinician Peña Wooten MD Attending Clinician [phone] Doctor Unassigned, [place] Attending Clinician U LUISA Schroeder Attending Clinician Unavailable Only, [facility] Attending Clinician Unavailable Pob, [facility] Main Attending Clinician UnavailPEÑA Pierce Admitting Clinician Unavailab rosanna DALY_LUISANA_Opal_Winsome Admitting Clinician Peña Wooten MD Admitting Clinician [phone] Payers Payer Name Policy Type Policy Number Effective Date Expirati on Date Source SRC AN PaperspineTNA Iterable [id number] 2015 00:00:00 [employer] (MEDICARE REPLACEMENT PPO) [id number] 2022 00:00:00 [employer] MANAGED MEDICARE PPO-CHACHA [id number] 2022 00:00:00 MEDICARE PART A \T\ B [id number] 2020 00:00:00 Problems Condition Name Condition Details [...] pain, right Disease Active 06-30 00:00: 00 [facility] Gynecologi c examinatio n Gynecologi c Examinatio n Problem Active 01-06 00:00: 00 [facility] Allergies, Adverse Reactions, Alerts Allergy Name Allergy Type Status Severity Reaction(s) Onset Date Inactive Date Treating Clinician Comments Source Codeine Propensi ty to adverse reaction s Active Nausea and/or Vomiting 06-30 00:00: 00 [facility] CODEINE DRUG INGREDI Active N/V 06-30 00:00: 00 [facility] NO KNOWN ALLERGIE S Drug Class Active [facility] Social History Social Habit Start Date Stop Date Quantity Comments Source Exposure to SARS-CoV-2 (event) Not sure [facility] of Social function 2023-09-21 00:00:00 2023-09-21 00:00:00 [facility] Alcohol intake 2023-09-14 00:00:00 2023-09-14 00:00:00 0 /d [facility] Tobacco use and exposure 2020-04-28 00:00:00 2020-04-28 00:00:00 Smokeless tobacco non-user [facility] Sex Ass[birth year] At 1955 00:00:00 1955 00:00:00 [facility] Smoking Status Start Date Stop Date Source Never Smoker [facility] Medical Medications Ordered Medication Name Filled Medication Name Start Date Stop Date Current Medication? Ordering Clinician Indication Dosage Frequency Signature (SIG) Comments Components Source lactated ringers IV infusion 1,000 mL 2022-11 17:30: 00 Yes 1000mL at 50 mL/hr, 1,000 mL, IV Infusion, CONTINUOUS , Starting on Tue09/21/23 at 1130, Until Discontinu ed, Routine, PACU [facility] ondansetron (ZOFRAN (PF)) injection 4 mg 2022-11 17:20: 29 Yes 4mg 4 mg, Slow IV Push, PRN, 1 dose, Starting on Tue09/21/23 at 1120, Until Discontinu ed, Routine, Nausea and Vomiting (N/V), PACU [facility] sodium chloride (NS) injection 2022-11 17:06: 00 09-21 17:12 :30 No PRN, Starting on Tue09/21/23 at 1106, Until Tue09/21/23 at 1112, Routine, Intra-op [facility] neomycin-po lymyxin-dex amethasone (MAXITROL) 3.5 mg/g-10,000 unit/g-0.1 % ophthalmic ointment 2022-11 17:06: 00 09-21 17:12 :30 No PRN, Starting on Tue09/21/23 at 1106, Until Tue09/21/23 at 1112, Routine, [facility] dexamethaso ne (DECADRON PHOSPHATE) injection 2022-11 17:06: 00 09-21 17:12 :30 No PRN, Starting on Tue09/21/23 at 1106, Until Tue09/21/23 at 1112, Routine, Intra-op [facility] ceFAZolin (ANCEF) injection 2022-11 17:06: 00 09-21 17:12 :30 No PRN, Starting on Tue09/21/23 at 1106, Until Tue09/21/23 at 1112, MINDA, Intra-op [facility] carbachoL (MIOSTAT) 0.01 % intraocular injection 2022-11 17:05: 00 09-21 17:12 :30 No PRN, Starting on Tue09/21/23 at 1105, Until Tue09/21/23 at 1112, Routine, Intra-op [facility] chondroitin sulf-sod hyaluronate (DUOVISC VISCO ELASTIC) intraocular injection 2022-11 16:55: 00 09-21 17:12 :30 No PRN, Starting on Tue09/21/23 at 1055, Until Tue09/21/23 at 1112, Routine, Intra-op [facility] EPINEPHrine 1:1,000 (1 mg/mL) (ADRENALIN) injection 2022-11 16:54: 00 09-21 17:12 :30 No PRN, Starting on Tue09/21/23 at 1054, Until Tue09/21/23 at 1112, Routine, Intra-op [facility] water for irrigation irrigation solution 2022-11 16:47: 00 09-21 17:12 :30 No PRN, Starting on Tue09/21/23 at 1047, Until Tue09/21/23 at 1112, Routine, Intra-op [facility] balanced salt irrig soln comb1 (BSS PLUS) ophthalmic solution 500 mL bag 2022-11 16:45: 00 09-21 17:12 :30 No PRN, Starting on Tue09/21/23 at 1045, Until Tue09/21/23 at 1112, Routine, Intra-op [facility] Hyaluronida se, Human Recomb. (HYLENEX) injection 2022-11 16:44: 00 09-21 17:12 :30 No PRN, Starting on Tue09/21/23 at 1044, Until Tue09/21/23 at 1112, Routine, Intra-op [facility] eye block syringe 11 mL 2022-11 16:43: 00 09-21 17:12 :30 No PRN, Starting on Tue09/21/23 at 1043, Until Tue09/21/23 at 1112, Intra-op [facility] cyclopent 1%-tropic 1%-phenyl 2.5%-ketor 0.5% (MYDRIATIC #5) ophthalmic solution syringe 0.5 mL 2022-11 15:30: 00 09-21 15:39 :00 No .5mL 0.5 mL, Left Eye, ONCE, 1 dose, On Tue09/21/23 at 0930, Routine, DSU Pre-op [facility] lactated ringers IV infusion 1,000 mL 2022-11 15:30: 00 09-21 15:39 :00 No 1000mL at 42 mL/hr, 1,000 mL, IV Infusion, ONCE, 1 dose, On Tue09/21/23 at 0930, Routine, DSU Pre-op [facility] SERTraline 50 mg tablet 2022-11 13:14: 52 Yes 50mg Take 1 tablet by mouth in the morning. [facility] Multivitami ns with Fluoride (MULTI-ASIM MIN ORAL) 2022-11 13:14: 52 Yes Take by mouth. [facility] semaglutide , weight loss, (WEGOVY) 0.5 mg/0.5 mL PnIj SC injection 2022-11 13:14: 52 Yes .5mg inject 0.5 mg under the skin weekly. [facility] buPROPion SR 150 mg SR tablet 2022-11 13:14: 52 Yes 150mg Take 1 tablet by mouth in the morning. [facility] SERTraline 50 mg tablet 04-30 21:09: 18 Yes 50mg Take 50 mg by mouth daily. [facility] Multivitami ns with Fluoride (MULTI-ASIM MIN ORAL) 04-30 21:09: 18 Yes Take by mouth. [facility] cyanocobala min, vitamin B-12, (B-12 DOTS ORAL) 04-30 21:09: 18 Yes Take by mouth. [facility] calcium carbonate (CALCIUM 600 ORAL) 04-30 21:09: 18 Yes Take by mouth. [facility] sodium chloride (NS) injection 04-30 20:05: 00 Yes PRN, Starting Tue04/30/20 at 1505, Until Discontinu ed, Routine, Intra-op [facility] neomycin-po lymyxin-dex amethasone (MAXITROL) 3.5 mg/g-10,000 unit/g-0.1 % ophthalmic ointment 04-30 20:05: 00 Yes PRN, Starting Tue04/30/20 at 1505, Until Discontinu ed, Routine, Intra-op [facility] gentamicin injection 04-30 19:59: 00 Yes PRN, Starting Tue04/30/20 at 1459, Until Discontinu ed, MINDA, Intra-op [facility] EPINEPHrine 1:1,000 (1 mg/mL) (ADRENALIN) injection 04-30 19:58: 00 Yes PRN, Starting Tue04/30/20 at 1458, Until Discontinu ed, Routine, Intra-op [facility] DUOVISC (DUOVISC VISCO ELASTIC) 3 %-4 %(0.5 mL) 1 % (0.55 mL) intraocular injection 04-30 19:58: 00 Yes PRN, Starting Tue04/30/20 at 1458, Until Discontinu ed, Routine, Intra-op [facility] dexamethaso ne (DECADRON PHOSPHATE) injection 04-30 19:58: 00 Yes PRN, Starting Tue04/30/20 at 1458, Until Discontinu ed, Routine, Intra-op [facility] ceFAZolin (ANCEF) injection 04-30 19:58: 00 Yes PRN, Starting Tue04/30/20 at 1458, Until Discontinu ed, MINDA, Intra-op [facility] carbachoL (MIOSTAT) 0.01 % intraocular injection 04-30 19:57: 00 Yes PRN, Starting Tue04/30/20 at 1457, Until Discontinu ed, Routine, Intra-op [facility] balanced salt irrig soln comb1 (BSS PLUS) ophthalmic solution 500 mL bag 04-30 19:57: 00 Yes PRN, Starting Tue04/30/20 at 1457, Until Discontinu ed, Routine, [facility] irrigation solution 04-30 19:45: 00 Yes PRN, Starting Tue04/30/20 at 1445, Until Discontinu ed, Routine, [facility] eye block syringe 11 mL 04-30 19:43: 00 Yes PRN, Starting Tue04/30/20 at 1443, Until Discontinu ed, Intra-op [facility] Hyaluronida se, Human Recomb. (HYLENEX) injection 04-30 19:42: 00 Yes PRN, Starting Tue04/30/20 at 1442, Until Discontinu ed, Routine, Intra-op [facility] lactated ringers IV infusion 500 mL 04-30 17:27: 00 04-30 17:27 :00 No 500mL at 20 mL/hr, 500 mL, IV Infusion, ONCE, 1 dose, Tue04/30/20 at 1230, Routine, DSU Pre-op [facility] mydriatic #5 ophthalmic solution 0.5 mL syringe 04-30 17:15: 00 04-30 17:29 :00 No .5mL 0.5 mL, Right Eye, ONCE, 1 dose, Tue04/30/20 at 1215, Routine, DSU Pre-op [facility] SERTraline 50 mg tablet 04-30 16:09: 18 Yes 50mg Take 50 mg by mouth daily. [facility] Multivitami ns with Fluoride (MULTI-ASIM MIN ORAL) 04-30 16:09: 18 Yes Take by mouth. [facility] Multivitami ns with Fluoride (MULTI-ASIM MIN ORAL) 04-28 20:21: 14 Yes Take by mouth. [facility] cyanocobala min, vitamin B-12, (B-12 DOTS ORAL) 04-28 20:21: 14 Yes Take by mouth. [facility] calcium carbonate (CALCIUM 600 ORAL) 04-28 20:21: 14 Yes Take by mouth. [facility] SERTraline 50 mg tablet 04-28 20:21: 13 Yes 50mg Take 50 mg by mouth daily. [facility] pentazocine -naloxone (TALWIN NX) 50-0.5 mg tablet 07-09 00:00: 00 Yes 1{tbl} Take 1 tablet by mouth every 4 (four) hours as needed for Pain or Headache and/or Pain. [facility] acetaminoph en-codeine (TYLENOL #3) 300-30 mg tablet 06-28 00:00: 00 Yes [facility] escitalopra m 10 mg tablet TAKE 1 TABLET BY MOUTH EVERY DAY escitalopra m 10 mg tablet TAKE 1 TABLET BY MOUTH EVERY DAY No 1 Q1D escitalopr am 10 mg tablet TAKE 1 TABLET BY MOUTH EVERY DAY [facility] estradiol 0.01% (0.1 mg/gram) vaginal cream Insert 0.5 g 3 times a week by vaginal route for 90 days. estradiol 0.01% (0.1 mg/gram) vaginal cream Insert 0.5 g 3 times a week by vaginal route for 90 days. No .5g Q56H estradiol 0.01% (0.1 mg/gram) vaginal cream Insert 0.5 g 3 times a week by vaginal route for 90 days. [facility] montelukast 10 mg tablet TAKE 1 TABLET BY MOUTH EVERY DAY montelukast 10 mg tablet TAKE 1 TABLET BY MOUTH EVERY DAY No 1 Q1D montelukas t 10 mg tablet TAKE 1 TABLET BY MOUTH EVERY DAY [facility] Mounjaro 2.5 mg/0.5 mL subcutaneou s pen injector Inject by subcutaneou s route. Mounjaro 2.5 mg/0.5 mL subcutaneou s pen injector Inject by subcutaneou s route. No Mounjaro 2.5 mg/0.5 mL subcutaneo us pen injector Inject by subcutaneo us route. [facility] ergocalcife rol (vitamin D2) 1,250 mcg (50,000 unit) capsule TAKE 1 CAPSULE BY MOUTH ONE TIME PER WEEK ergocalcife rol (vitamin D2) 1,250 mcg (50,000 unit) capsule TAKE 1 CAPSULE BY MOUTH ONE TIME PER WEEK No ergocalcif lilibeth (vitamin D2) 1,250 mcg (50,000 unit) capsule TAKE 1 CAPSULE BY MOUTH ONE TIME PER WEEK [facility] ibuprofen 800 mg tablet TAKE 1 TABLET BY MOUTH EVERY 8 HOURS UNTIL INFLAMMATIO N SUBSIDES OR NEEDED FOR PAIN ibuprofen 800 mg tablet TAKE 1 TABLET BY MOUTH EVERY 8 HOURS UNTIL INFLAMMATIO N SUBSIDES OR NEEDED FOR PAIN No ibuprofen 800 mg tablet TAKE 1 TABLET BY MOUTH EVERY 8 HOURS UNTIL INFLAMMATI ON SUBSIDES OR NEEDED FOR PAIN [facility] levocetiriz ine 5 mg tablet TAKE 1 TABLET BY MOUTH EVERYDAY AT BEDTIME levocetiriz ine 5 mg tablet TAKE 1 TABLET BY MOUTH EVERYDAY AT BEDTIME No levocetiri zine 5 mg tablet TAKE 1 TABLET BY MOUTH EVERYDAY AT BEDTIME [facility] tramadol 50 mg tablet Take 1 tablet every 6 hours by oral route for 2 days. tramadol 50 mg tablet Take 1 tablet every 6 hours by oral route for 2 days. No tramadol 50 mg tablet Take 1 tablet every 6 hours by oral route for 2 days. [facility] Immunizations Ordered Immunization Name Filled Immunization Name Date Status Comments Source SARS-COV-2 COVID-19 PFIZER VACCINE Unknown Completed [facility] SARS-COV-2 COVID-19 PFIZER VACCINE Unknown Completed [facility] SARS-COV-2 COVID-19 PFIZER VACCINE Unknown Completed [facility] SARS-COV-2 COVID-19 PFIZER VACCINE Unknown Completed [facility] Vital Signs Vital Name Observation Time Observation Value Comments S ource BP Diastolic 2024-09-25 00:00:00 58 mm[Hg] [facility] BP Systolic 2024-09-25 00:00:00 95 mm[Hg] [facility] Height 2024-09-25 00:00:00 68 [in_i] [facility] Body Weight 2024-09-25 00:00:00 155.6 [lb_av] [facility] BMI (Body Mass Index) 2024-08-24 00:00:00 23.7 kg/m2 [facility] Height 2024-08-24 00:00:00 68 [in_i] [...] 2024-06-06 00:00:00 24.5 kg/m2 [facility] Height 2024-05-30 00:00:00 68 [in_i] [facility] BMI (Body Mass Index) 2024-05-30 00:00:00 24.6 kg/m2 [facility] BP Systolic 2024-05-30 00:00:00 101 mm[Hg] [facility] Body Weight 2024-05-30 00:00:00 162 [lb_av] [facility] BP Diastolic 2024-05-30 00:00:00 61 mm[Hg] [facility] Systolic blood pressure 2023-09-21 17:30:00 119 mm[Hg] [facility] Diastolic blood pressure 2023-09-21 17:30:00 60 mm[Hg] [facility] Oxygen saturation in Arterial blood by Pulse oximetry 2023-09-21 17:30:00 97 /min [facility] Respiratory rate 2023-09-21 17:25:00 20 /min [facility] Heart rate 2023-09-21 17:10:00 60 /min [facility] Body temperature 2023-09-21 15:39:00 36.33 Becky [facility] Body height 2023-09-14 13:45:00 172.7 cm [facility] Body weight 2023-09-14 13:45:00 76.658 kg [facility] BMI 2023-09-14 13:45:00 25.70 kg/m2 [facility] Systolic blood pressure 2023-09-21 15:39:00 127 mm[Hg] [facility] Diastolic blood pressure 2023-09-21 15:39:00 72 mm[Hg] [facility] Heart rate 2023-09-21 15:39:00 68 /min [facility] Body temperature 2023-09-21 15:39:00 36.33 Becky [facility] Respiratory rate 2023-09-21 15:39:00 14 /min [facility] Oxygen saturation in Arterial blood by Pulse oximetry 2023-09-21 15:39:00 99 /min [facility] Body height 2023-09-14 13:45:00 172.7 cm [facility] Body weight 2023-09-14 13:45:00 76.658 kg [facility] BMI 2023-09-14 13:45:00 25.70 kg/m2 [facility] Systolic blood pressure 2020-04-30 20:28:00 120 mm[Hg] [facility] Diastolic blood pressure 2020-04-30 20:28:00 75 mm[Hg] [facility] Heart rate 2020-04-30 20:28:00 74 /min [facility] O[facility] saturation in Arterial blood by Pulse oximetry 2020-04-30 20:28:00 99 /min [facility] Body temperature 2020-04-30 20:12:00 36.61 Becky [facility] Respiratory rate 2020-04-30 20:12:00 16 /min [facility] Body height 2020-04-28 20:00:00 175.3 cm [facility] Body weight 2020-04-28 20:00:00 82.101 kg [facility] BMI 2020-04-28 20:00:00 26.73 kg/m2 [facility] Systolic blood pressure 2020-04-30 20:28:00 120 mm[Hg] [facility] Diastolic blood pressure 2020-04-30 20:28:00 75 mm[Hg] [facility] Heart rate 2020-04-30 20:28:00 74 /min [facility] Oxygen saturation in Arterial blood by Pulse oximetry 2020-04-30 20:28:00 99 /min [facility] Body temperature 2020-04-30 20:12:00 36.61 Becky [facility] Respiratory rate 2020-04-30 20:12:00 16 /min [facility] Body height 2020-04-28 20:00:00 175.3 cm [facility] Body weight 2020-04-28 20:00:00 82.101 kg [facility] BMI 2020-04-28 20:00:00 26.73 kg/m2 [facility] Procedures Procedure Date / Time Performed Performing Clinician Source US TRANSVAGINAL 2024-06-21 00:00:00 [facility] MAMMO, screening, digital, bilateral 2024-06-06 00:00:00 [facility] PHACOEMULSIFICATION OF CATARACT WITH INTRAOCULAR LENS IMPLANT 2023-09-21 16:34:00 Peña Lam [facility] - [facility] 2023-09-21 06:01:00 Doctor Unassigned, [place] [facility] CONSENT/REFUSAL FOR DIAGNOSI S AND TREATMENT 2023-09-12 16:34:01 Doctor Unassigned, [place] [facility]ERY - [facility] 2020-04-30 05:01:00 Doctor Unassigned, [place] [facility] COVID-19 (ID NOW RAPID TESTING) 2020-04-29 14:51:00 Peña Lam [facility] CONSENT/REFUSAL FOR DIAGNOSI S AND TREATMENT 2020-04-23 21:52:42 Doctor Unassigned, [place] [facility] ASSIGNMENT OF BENEFITS 2020-04-23 21:52:28 Doctor Unassigned, [place] [facility] NOTICE OF PRIVACY PRACTICES 2020-04-23 21:52:14 Doctor Unassigned, [place] [facility] CONSENT/REFUSAL FOR DIAGNOSI S AND TREATMENT 2020-04-23 21:52:00 Doctor Unassigned, [place] [facility] ASSIGNMENT OF BENEFITS 2020-04-23 21:51:44 Doctor Unassigned, [place] [facility] PHYSICIAN ORDERS 2020-04-23 05:01:00 Doctor Unassigned, [place] [facility] Cholecystectomy 2012-11-14 00:00:00 [facility] Gastric Bypass for Obesity 2008-11-14 00:00:00 [facility] Procedure on Neck [facility] Ligation of Bilateral Fallopian Tubes [facility] Augmentation of Bilateral Breasts [facility] Encounters Start Date/Time End Date/Time Encounter Type Admission Type Attending Clinicians Care Facility Care Department Encounter ID Source 2021-09-10 23:43:46 Outpatient R PEÑA LAM [facility] [id number] [facility] 2024-10-17 00:00:00 2024-10-17 00:00:00 Carolyn Bacon MD: [facility] [address] [place] [address], [place] [address] , Ph. [facility] - GC_GCBZW_Barbara hui Shukri* [id number] [facility] 2024-10-02 00:00:00 2024-10-02 00:00:00 LUZ Leyva: [address], [place] [id number] , Ph. [facility] - GC_GCBZW_Barbara hui Shukri* [id number] [facility] 2024-09-25 00:00:00 2024-09-25 00:00:00 Carolyn Bacon MD: [address], [place] [id number] , Ph. [facility] - GC_GCBZW_Barbara Watt* [id number] [facility] 2024-09-05 00:00:00 2024-09-05 00:00:00 LUZ Leyva: [address], [address], [place] [id number] , Ph. [facility] - GC_GCBZW_Barbara korina Watt* [id number] [facility] 2024-08-24 00:00:00 2024-08-24 00:00:00 Carolyn Bacon MD: [address], [place] [address] , Ph. [facility] - GC_GCBZW_Barbara korina Watt* [id number] [facility] 2024-06-27 00:00:00 2024-06-27 00:00:00 KAREN QuanP: [address], [place] [address] , Ph. [facility] - GC_GCBZW_Barbara korina Watt* [id number] [facility] 2024-06-21 00:00:00 2024-06-21 00:00:00 Carolyn Bacon MD: [address], [place] [id number] , Ph. [facility] - GC_GCBZW_La korina Shukri* [id number] [facility] 2024-06-06 00:00:00 2024-06-06 00:00:00 Rosangela Wilson, [employer]: [address], [address], [place] [id number] , Ph. [facility] - GC_GCBZW_Barbara hui [facility]* [id number] [facility] 2024-05-30 00:00:00 2024-05-30 00:00:00 Carolyn Bacon MD: [address], [address], [place] [id number] , Ph. [facility] - GC_GCBZW_Barbara korina [facility]* [id number] [facility] 2023-09-24 00:00:00 2023-09-24 00:00:00 Outpatient GC_SWHAHL_M onical_J [facility] [id number] [facility] 2023-09-21 09:19:00 2023-09-21 11:40:00 Outpatient PEÑA LEBLANC [facility] OPH [id number] [facility] 2023-09-21 09:19:00 2023-09-21 11:40:00 Hospital Encounter Peña Lam [facility] [id number] [id number] [facility] 2023-09-21 10:08:00 2023-09-21 10:46:00 Surgery Peña Lam [facility] [id number] [id number] [id number] [id number] [facility] 2023-09-21 00:00:00 2023-09-21 00:00:00 Orders Only Doctor Unassigned, [place] [facility] [id number] [id number] [id number] [facility] 2023-09-12 00:00:00 2023-09-12 00:00:00 Orders Only Doctor Unassigned, [place] [facility] [id number] [id number] [id number] [facility] 2023-08-19 00:00:00 2023-08-19 00:00:00 Outpatient GC_SWHAHL_M onical_J PRIV PRIV [id number] [facility] 2023-08-19 00:00:00 2023-08-19 00:00:00 Outpatient GC_SWHAHL_M onical_J PRIV PRIV [id number] [facility] 2023-07-22 00:00:00 2023-07-22 00:00:00 Outpatient GC_SWHAHL_M onical_J PRIV PRIV [id number] [facility] 2023-06-24 00:00:00 2023-06-24 00:00:00 Outpatient GC_SWHAHL_M onical_J PRIV PRIV [id number] [facility] 2023-06-23 00:00:00 2023-06-23 00:00:00 Outpatient GC_SWHAHL_M onical_J PRIV PRIV [id number] [facility] 2021-01-08 13:30:00 2021-01-08 13:30:00 Outpatient LUISA MAURER [facility] [id number] [facility] 2020-12-10 13:10:00 2020-12-10 13:10:00 Outpatient LUISA MAURER [facility] [id number] [facility] 2020-04-30 11:54:00 2020-04-30 16:00:00 Peña Falcon [facility] [id number] [id number] [id number] [facility] 2020-04-30 11:54:00 2020-04-30 16:00:00 Hospital Encounter Peña Lam [facility] [id number] [id number] 4.2.7.2.686 [id number] 2020-04-30 00:00:00 2020-04-30 00:00:00 Orders Only Doctor Unassigned, [place] [facility] [id number] 350.1.13.10 [id number] [id number] [facility] 2020-04-30 00:00:00 2020-04-30 00:00:00 Orders Only Doctor Unassigned, [place] [facility] [id number] [id number] [id number] [id number] 2020-04-29 15:00:00 2020-04-29 15:00:00 Outpatient R PEÑA LAM [facility] [id number] [facility] 2020-04-29 09:28:00 2020-04-29 09:43:00 Laboratory Only Only, Adc Test Peña Lam [facility] [id number] [id number] [id number] [facility] 2020-04-29 09:28:00 2020-04-29 09:43:00 Laboratory Only Only, Adc Test [facility] [id number] 2020-04-29 09:15:00 2020-04-29 09:15:00 Outpatient R [facility] [id number] [facility] 2020-04-23 16:49:53 2020-04-23 17:04:53 Travel Guide Visit Pob, Adc Lab Main [facility] [id number] [facility] 2020-04-23 16:49:53 2020-04-23 17:04:53 Travel Guide Visit [facility] Lab Main [facility] [id number] 2020-04-23 17:00:00 2020-04-23 17:00:00 Outpatient R [place] [facility] [id number] [facility] Results Test Description Test Time Test Comments Results Result Co mments Source [facility] Medicalurinalysis, [id number] 13:10:01* Test Item Value Reference Range Interpretation Comme nts Leukocytes (test code = Leukocytes) Negative Nitrite (test code = Nitrite) negative Urobilinogen (test code = Urobilinogen) Normal Protein (test code = Protein) Negative pH (test code = pH) 6.0 Blood (test code = Blood) Negative Specific Bradford (test code = Specific Bradford) 1.010 Ketone (test code = Ketone) Negative Bilirubin (test code = Bilirubin) Negative Glucose (test code = Glucose) Negative Appearance (test code = Appearance) Clear Color (test code = Color) Yellow [facility] Pathology biopsy [id number] 00:00:00Clinical InformationPathologistA SourceA Gross DescriptionA DiagnosisPriv[facility] Medical urinalysis, [id number] 09:24:00* Test Item Value Reference Range Interpretation Comme nts Leukocytes (test code = Leukocytes) 3+ Nitrite (test code = Nitrite) negative Urobilinogen (test code = Urobilinogen) Normal Protein (test code = Protein) 1+ pH (test code = pH) 5.5 Blood (test code = Blood) Negative Specific Bradford (test code = Specific Bradford) 1.030 Ketone (test code = Ketone) Trace Bilirubin (test code = Bilirubin) 2+ Glucose (test code = Glucose) Negative Appearance (test code = Appearance) Clear Color (test code = Color) Pale Yellow [facility]ment of post-voiding residual urine and/or bladder capacity (PROC)2024-05-30 10:49:00* Test Item Value Reference Range Interpretation Comme nts (PVR) (test code = (PVR)) 45 ML [facility] MedicalCOVID-19 (ID NOW RAPID TESTING)2020-04-29 15:40:00* Test Item Value Reference Range Interpretation Comme nts SARS-CoV-2 Rapid ID NOW (test code = 85136-0) Not Detected Not Detected KENNEDY (test code = KENNEDY) ID NOW COVID-19 As say is an isothermal nucleic acid amplification test intended for the qualitative detection of nucleic acid from SARS-CoV-2 viral RNA in nasopharyngeal (XM1 TANK DRIVER) specimens. It is used under Emergency Use [...] clinically indicated. Lab Interpretation (test code = 62912-3) Normal [facility]
[2024-10-30 18:15] VITALS: BMI 20.9
[2024-10-30] MEDS ORDERED: SODIUM CHLORIDE 0.9% 10ML INJ IV PRN (20:42)
[2024-10-30] MEDS: PANTOPRAZOLE 40 MG INJ IVP SCH (20:57)
[2024-10-30] MEDS: CEFTRIAXONE 1,000 MG in NA CHLORIDE 0.9% 50 ML IVPB SCH (20:57)
[2024-10-30] MEDS: HYDROMORPHONE HCL 1 MG/ML INJ IV PRN (20:57)
[2024-10-30] MEDS: NA CHLORIDE 0.9% 1,000 ML IV SCH (20:58)
[2024-10-31 02:12] LABS: PT Prothrombin Time 11.5 SECONDS (9.4-12.5); PTT, Activated Partial Thromb 28.2 SECONDS (24.3-36.9); Protime INR 1.03
[2024-10-31 02:36] LABS: ALT/SGPT 25 U/L (13-56); AST/SGOT 27 U/L (15-37); Albumin 2.7 g/dL (3.4-5.0); Alkaline Phosphatase 72 U/L (45-117); Anion Gap 9.6 mEq/L (5.0-15.0); BUN Blood Urea Nitrogen 19 mg/dL (7-18); Bicarbonate 20 mEq/L (21-32); Bilirubin Total 0.3 mg/dL (0.2-1.0); Globulin 2.8 g/dL (2.3-3.5); Glomerular Filtration Rate 83 ml/min (=/>90); Glucose Level 127 mg/dL (74-106); Lipase 25 U/L (13-75); Magnesium 2.2 mg/dL (1.6-2.4); Phosphorus 3.5 mg/dL (2.5-4.9); Potassium 3.6 mEq/L (3.5-5.1); Protein, Total 5.5 g/dL (6.4-8.2); Sodium Level 142 mEq/L (136-145)
[2024-10-31 02:57] LABS: Bilirubin Direct < 0.2 mg/dL (0-0.2); Bilirubin Indirect, Calculated 0.1 mg/dL (0.2-0.8)
[2024-10-31 03:07] LABS: Absolute Basophils 0.1 K/uL (0-0.5); Absolute Eosinophils 0.3 K/uL (0-0.5); Absolute Lymphocytes (CBC) 1.2 K/uL (0.7-4.9); Absolute Monocytes 0.6 K/uL (0.1-1.3); Absolute Neutrophil 6.6 K/uL (1.8-8.0); Basophils % 0.9 % (0-1.3); Eosinophils % 3.2 % (0-4.4); Hemoglobin 12.3 g/dL (12.0-15.0); Lymphocytes % 13.9 % (15.3-44.8); MCH 29.7 pg (27.0-35.0); MCHC 32.5 g/dL (32.0-36.0); MCV 91.4 fL (80-100); MPV 10.1 fL (7.6-11.3); Monocytes % 6.4 % (3.3-12.3); Neutrophils % 75.6 % (41.7-73.7); Nucleated Red Blood Cells % 0.1 % (0-0); Platelets 276 thou/uL (152-406); RBC Red Blood Cell Count 4.15 M/uL (3.86-4.86); Red Cell Distribution Width 13.2 % (12.1-15.2)
[2024-10-31] MEDS ORDERED: DIPHENHYDRAMINE 25 MG TAB/CAP PO PRN (03:35)
[2024-10-31] MEDS ORDERED: LOPERAMIDE HCL 2 MG CAPSULE PO PRN (03:35)
[2024-10-31 03:48] LABS: Calcium Oxalate Crystals- Ur Moderate /HPF (None Seen); Specific Gravity 1.018 (1.005-1.030); Sqamous Epithelial None Seen /HPF (None Seen); Urine Bacteria None Seen /HPF (<20); Urine Bilirubin NEGATIVE (Negative); Urine Blood 1+ (Negative); Urine Clarity Turbid (Clear); Urine Color Light-Yellow (Yellow); Urine Culture Reflex Order NOT NEEDED; Urine Glucose NEGATIVE (Negative); Urine Ketones 1+ (Negative); Urine Microscopic Reflex YN ORDER UMIC; Urine Mucus Slight /HPF (None Seen); Urine Nitrite NEGATIVE (Negative); Urine Protein NEGATIVE (Negative); Urine RBC <5 /HPF (None Seen); Urine Urobilinogen Normal (Normal); Urine WBC <5 /HPF (<5)
[2024-10-31] MEDS ORDERED: ONDANSETRON 4 MG/2 ML VIAL IV PRN (03:53)
[2024-10-31] MEDS: ONDANSETRON 4 MG/2 ML VIAL IV PRN (04:04)
--- NOTE | 2024-10-31 07:42 | RAD REPORT ---
EXAMINATION: CT ABDOMEN AND PELVIS WITH CONTRAST CLINICAL INDICATION: DIFFUSE ABD PAIN TECHNIQUE: CT abdomen and pelvis was performed, after the administration of IV contrast, as per [facility]. Axial, sagittal and coronal reconstructions were obtained. One or more of the following dose reduction techniques were used: Automated exposure control, adjustment of the mA and k V according to patient size, and iterative reconstruction. Unless otherwise specified, incidental findings do not require dedicated imaging follow-up. COMPARISON: 11/02/2024 FINDINGS: LOWER CHEST: The visualized lung bases are clear. Surgical changes of gastric bypass. Mild mucosal en hancement of the stomach seen. LIVER: Normal in size and contour. No focal lesion. Cholecystectomy clips. SPLEEN: Normal size. No focal lesion. PANCREAS: No mass, ductal dilation, or liliya-pancreatic fluid. ADRENALS: Normal; no mass. KIDNEYS: Mild left-sided hydronephrosis and hydroureter. 5 mm calculus is seen in the dependent porti on the urinary bladder. No right-sided hydronephrosis seen. GASTROINTESTINAL TRACT: No evidence of free air, significant intra-abdominal free fluid, bowel obstru ction or abscess. Moderate stool is present throughout the colon. APPENDIX: Appendix not visualized, but no inflammatory changes in region of appendix. LYMPH NODES: No lymphadenopathy. MUSCULOSKELETAL: No acute or suspicious osseous abnormality. ADDITIONAL FINDINGS: None. IMPRESSION: 5 mm calculus in the urinary bladder may be a recently passed stone. Mild residual hydronephrosis venkat pected on the left. Moderate stool is present throughout the colon.
--- NOTE | 2024-10-31 08:13 | RAD REPORT ---
EXAMINATION: TWO VIEW CHEST XR CLINICAL INDICATION: ordered by angel TECHNIQUE: 2 views of the chest was performed. COMPARISON: 10/15/2024 FINDINGS: The lungs are well inflated and clear. The heart is normal in size. No displaced fractures evident. S mall hiatal hernia. Hardware plate is present lower cervical spine. IMPRESSION: No acute or significant abnormalities.
[2024-10-31 08:26] VITALS: BP 107/52; TEMP 97.9
[2024-10-31] MEDS ORDERED: ENOXAPARIN 40 MG/0.4 ML SQ SCH (09:00)
[2024-10-31] MEDS: ACETAMINOPHEN 325 MG TABLET PO PRN (09:02)
[2024-10-31] MEDS: SERTRALINE HCL 100 MG TAB PO SCH (09:03)
[2024-10-31] MEDS: POTASSIUM CL SA 10 MEQ TAB PO ONE (09:03)
[2024-10-31] MEDS ORDERED: POLYETHYL GLY 3350 17 GM/DOSE PO SCH (21:00)
[2024-11-05 22:48] LABS: 1,25 Dihydroxy Vitamin D3 33 pg/mL; Vitamin D 1,25-Dihydroxy Total 33 pg/mL (18-72); Vitamin D,1,25-OH2, D2 <8 pg/mL
--- NOTE | 2024-11-20 21:06 | P.DS ---
Admission Date: 10/30/24 Discharge Date: 11/20/24 Disposition: ROUTINE DISCHARGE Discharge Condition: FAIR Hospital Course: Brit had abdomen pain she on CT showed that she had passed stone into the bladder overnight. She was painfree and stable for DC in am. Vital Signs/Physical Exam: Temp Pulse Resp BP Pulse Ox 97.9 F 64 12 107/52 L 95 10/31/24 08:00 10/31/24 08:00 10/31/24 08:00 10/31/24 08:00 10/31/24 08:00 Laboratory Data at Discharge: WBC 8.70 thou/uL (4.3-10.9) 10/31/24 01:38 Hgb 12.3 g/dL (12.0-15.0) 10/31/24 01:38 Hct 38.0 % (36.0-45.0) 10/31/24 01:38 Plt Count 276 thou/uL (152-406) 10/31/24 01:38 PT 11.5 SECONDS (9.4-12.5) 10/31/24 01:38 INR 1.03 10/31/24 01:38 APTT 28.2 SECONDS (24.3-36.9) 10/31/24 01:38 Sodium 142 mEq/L (136-145) 10/31/24 01:38 Potassium 3.6 mEq/L (3.5-5.1) 10/31/24 01:38 BUN 19 mg/dL (7-18) H 10/31/24 01:38 Creatinine 0.77 mg/dL (0.55-1.02) 10/31/24 01:38 Glucose 127 mg/dL (74-106) H 10/31/24 01:38 Phosphorus 3.5 mg/dL (2.5-4.9) 10/31/24 01:38 Magnesium 2.2 mg/dL (1.6-2.4) 10/31/24 01:38 Total Bilirubin 0.3 mg/dL (0.2-1.0) 10/31/24 01:38 AST 27 U/L (15-37) 10/31/24 01:38 ALT 25 U/L (13-56) 10/31/24 01:38 Alkaline Phosphatase 72 U/L (45-117) 10/31/24 01:38 Lipase 25 U/L (13-75) 10/31/24 01:38 Home Medications: Multivitamin 1 each PO DAILY 09/07/21 Sertraline HCl 100 mg PO DAILY 09/07/21 Cefuroxime [Ceftin*] 250 mg PO BID #10 tab 10/31/24 Pantoprazole [Protonix Tab*] 40 mg PO DAILY #30 tab 10/31/24 New Medications: Cefuroxime [Ceftin*] 250 mg PO BID #10 tab Pantoprazole [Protonix Tab*] 40 mg PO DAILY #30 tab Followup: Maximiliano Jimenez MD [ACTIVE - CAN ADMIT] - (Follow up in 2 weeks)
== END 2024-10-31 10:03 | disposition home or self-care (01) ==
LOC: 2ND 17:54
PROVIDERS: ADMIT Internal Medicine; ATTEND Internal Medicine
DX: N21.0 Calculus in bladder (principal); R10.84 Generalized abdominal pain; R30.0 Dysuria
CPT/HCPCS: 87040 ×2; 85025; 81001; 80048; 36415; 83735; 84100; 85610; 80076; 85730; 82652; 84443; 82607; 83690; 74177; 71046; Q9967; J2470; J1171 ×2; J2405; J7030; J0696; G0379; G0378 ×2